=== PATIENT | female | born 1940 | race Caucasian/White ===

== ENCOUNTER 2016-08-06 16:03 | Emergency (ER) | payer MEDICARE, OTHER ==
[2016-08-06] MEDS ORDERED: BABY ASPIRIN 81 MG CHEW PO ONE (16:22)
[2016-08-06] MEDS ORDERED: BABY ASPIRIN 81 MG CHEW ONE (16:30)
--- NOTE | 2016-08-06 16:31 | ERPHSYRPT ---
- History of Present Illness Time Seen by Provider: 08/06/16 16:09 Source: patient, family Exam Limitations: clinical condition Patient Subjective Stated Complaint: PT STATES THAT SHE JUST "FEELS WOOZY" STATES THAT SHE. WOKE UP THIS AM AND FELT "WOOZY" STATES SHE WAS HAVING PROBLMES GRABBING THINGS WITH HER LEFT HAND AROUND 1300 TODAY. 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 AND STRONG PUPILS ROUND EQUAL AND REACTIVE. Time of Onset/Last Time Seen Normal: last pm Timing/Duration: today, hour(s) (8) Severity: mild Character of Deficits: new weakness Deficits: no difficulties Baseline/Normal Cognition: alert oriented x 3 Current Cognition: alert oriented x 3 Baseline Gait: walks w/o assistance Associated Symptoms: denies symptoms Allergies/Adverse Reactions: cefaclor [From Ceclor] Allergy (Intermediate, Verified 10/02/15 01:58) Rash Home Medications: Ascorbate Calcium [Vitamin C] 500 mg PO BID 10/01/15 [History] Calc/D3/Mag/Zn/Lacrosse Player/René/[place] [Calcium 600 mg Plus Vit D Tab] 1 each PO DAILY [History] Lisinopril 10 mg [Zestril 10 MG] 10 mg PO DAILY 10/01/15 [History] Vitamin E 400 unit PO DAILY 10/01/15 [History] Hx Tetanus, Diphtheria Vaccination/Date Given: No Hx Influenza Vaccination/Date Given: No Hx Pneumococcal Vaccination/Date Given: No Immunizations Up to Date: Yes - Review of Systems Constitutional: No Symptoms Eyes: No Symptoms Ears, Nose, & Throat: No Symptoms Respiratory: No Symptoms Cardiac: No Symptoms Abdominal/Gastrointestinal: No Symptoms Musculoskeletal: No Symptoms Skin: No Symptoms Neurological: Focal Weakness Psychological: No Symptoms Endocrine: No Symptoms Hematologic/Lymphatic: No Symptoms Immunological/Allergic: No Symptoms - Past Medical History Pertinent Past Medical History: Yes Neurological History: TIA ENT History: Cataracts Cardiac History: High Cholesterol, Hypertension Respiratory History: No Pertinent History Endocrine Medical History: No Pertinent History Musculoskeletal History: Arthritis GI Medical History: GERD History: No Pertinent History Psycho-Social History: No Pertinent History Female Reproductive Disorders: Breast Cancer Other Medical History: HYDROCEPHALIS, LEFT SIDE LUMPECTOMY WITH CHIP PLACEMNENT - Past Surgical History Past Surgical History: Yes Neuro Surgical History: Brain Shunt Cardiac: No Pertinent History Respiratory: No Pertinent History Gastrointestinal: No Pertinent History Genitourinary: No Pertinent History Female Surgical History: Hysterectomy Other Surgical History: BREAST CA, WITH LUMPECTOMY AND CHIP PLACEMENT,. BUNION SURGERY, CATARACT SURGERY WITH CORRECTIVE LENS IMPLANTS BILATERALLY - Social History Smoking Status: Never smoker Exposure to second hand smoke: Yes Drug Use: none Patient Lives Alone: No - Female History Hx Last Menstrual Period: N/A - Nursing Vital Signs Nursing Vital Signs: Initial Vital Signs Temperature 99.0 F Temperature Source Oral Pulse Rate 104 Respiratory Rate 18 Blood Pressure [Right Arm] 140/72 - [place] Coma Scale Best Eye Response (Jacqueline): (4) open spontaneously Best Verbal Response ([place]queline): (5) oriented Best Motor Response ([place]): (6) obeys commands [place] Total: 15 - Physical Exam General Appearance: no apparent distress Eye Exam: bilateral eye: normal inspection, PERRL, EOMI Ears, Nose, Throat Exam: normal ENT inspection, pharynx normal Neck Exam: normal inspection, non-tender, supple, full range of motion Respiratory: normal breath sounds, lungs clear Cardiovascular: regular rate/rhythm, normal heart sounds, normal peripheral pulses Gastrointestinal: soft, normal bowel sounds Back Exam: normal inspection, normal range of motion Extremity Exam: normal inspection, normal range of motion, pelvis stable Peripheral Pulses: dorsalis-pedis (R): 3+, dorsalis-pedis (L): 3+ Mental Status: alert, oriented x 3, cooperative laboratory tester Exam: normal hearing, normal speech, PERRL Coordination/Gait: normal finger to nose Motor/Sensory: no motor deficit, no sensory deficit, no pronator drift Skin Exam: normal color SpO2 Interpretation: borderline oxygenation SpO2: 92 Oxygen Delivery: Room Air - Course Nursing assessment & vital signs reviewed: Yes EKG Interpreted by Me: RATE (77), Sinus Rhythm, NORMAL AXIS, Other (No acute ischemia. No change since ECG of 10.01.2015) - CT Exams Head CT Interpretation: Discussed w/radiologist (Small subdural Right temperoparietal hematoma. 7 cm in AP dimension.) Ordered Tests: Active Orders 24 hr Category Date Time Status Compounding Pharmacy Technician STAT Care 08/06/16 16:22 Active Clean Catch Urine Specimen STAT Care 08/06/16 16:22 Active EKG-ER Only STAT Care 08/06/16 16:22 Active IV Insertion STAT Care 08/06/16 16:22 Active NPO (ED) STAT Care 08/06/16 16:22 Active Oxygen-ED Only NASAL CANNULA 2 lpm Care 08/06/16 16:22 Active CHEST 1 VIEW (PORTABLE) Stat Exams 08/06/16 16:22 Taken HEAD WITHOUT CONTRAST [CT] Stat Exams 08/06/16 16:23 Taken CBC W DIFF Stat Lab 08/06/16 16:22 Ordered CMP Stat Lab 08/06/16 16:22 Ordered PROTIME WITH INR Stat Lab 08/06/16 16:22 Ordered UA Stat Lab 08/06/16 16:22 Ordered Medication Summary Discontinued Medications Generic Name Dose Route Start Last Admin Trade Name Freq PRN Reason Stop Dose Admin Aspirin 81 mg 08/06/16 16:22 Baby Aspirin 81 Mg Chew PO 08/06/16 16:23 STAT ONE Aspirin Confirm 08/06/16 16:30 Baby Aspirin 81 Mg Chew Administered 08/06/16 16:31 Dose 81 mg .ROUTE .STK-MED ONE Labetalol HCl Confirm 08/06/16 16:50 Trandate 20 Mg/5 Ml Syringe Administered 08/06/16 16:51 Dose 20 mg IV .STK-MED ONE - Progress Progress: improved Discussed with Dr.: Other (Dr. Arango/Ne[facility]surgery notified at [facility] Accepts pt. to [facility].) Counseled pt/family regarding: lab results, diagnosis, need for follow-up, rad results - Departure Time of Disposition: 17:00 Departure Disposition: Transfer Clinical Impression: Subdural hematoma, Labile hypertension Condition: Serious Critical Care Time: Yes Critical Care Time(excluding separately billable procedures): 30-74 minutes
[2016-08-06] MEDS ORDERED: TRANDATE 20 MG/5 ML SYRINGE IV ONE (16:50)
[2016-08-06 16:55] VITALS: BP 140/72; PULSE 104
[2016-08-06] MEDS ORDERED: Keppra 500 MG/5 ML*** 1,000 MG in D5w 100ML Mini Bag 100 ML 100 ML IV ONE (17:02)
--- NOTE | 2016-08-06 17:02 | XRAY ---
Indication: Left-sided weakness. History of hydrocephalus. Multiple contiguous axial images obtained through the head without contrast. Comparison: October 01, 2015. New acute subdural hematoma seen along the right parietal convexity. It measures 6 mm in thickness and at least 7 cm in AP dimension. This is seen on a background of mixed chronic subdural hematoma. There is slight effacement of the adjacent brain parenchyma but no midline shifting. 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 Stable age-related global atrophy and mild periventricular degenerative microvascular ischemia. Bony calvarium intact. Visualized paranasal sinuses and mastoid air cells are pneumatized and clear. 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 Impression: 1. New right parietal subdural hematoma demonstrating mixed acute and chronic blood. No significant mass effect/midline shifting. 2. Stable normal aging brain including atrophy and degenerative micro-ischemia. 3. Stable communicating type hydrocephalus with ventricle shunt catheter in situ. 4. Stable left extraocular mass. Comment: Telephone report was given to ordering clinician, Dr. Ledezma at 1644 hrs on August 06, 2016.
[2016-08-06] MEDS ORDERED: Keppra 500 MG/5 ML ONE (17:03)
--- NOTE | 2016-08-06 17:03 | XRAY ---
Indication: Left-sided weakness. Comparison: February 08, 2008. Portable chest markedly underinflated today accentuating the cardiopulmonary structures and probably accounts for the bibasilar opacities. Underlying pneumonic infiltrate not completely excluded. No consolidation, large effusion, or pneumothorax. Stable right-sided ventricular shunt catheter traverses the chest. Bony thorax intact again with mild osteopenia. Stable left axillary noemi dissection. Impression: Nonacute underinflated chest. Underlying pneumonic infiltrate not completely excluded.
[2016-08-06] MEDS ORDERED: D5w 100ML Mini Bag 100 ML 100 ML IV ONE (17:04)
[2016-08-06 17:09] VITALS: O2SAT 92
[2016-08-06 17:18] LABS: BASOPHIL % 0.3 % (0.0-0.4); Eosinophil % 2.3 % (0.00-5.0); Granulocytes % 68.9 % (36.0-66.0); Mean Corpuscular Hemoglobin 29.2 pg (26-32); Mean Platelet Volume 11.1 fl (6-9.5); Monocytes % 6.5 % (0.0-12.0); Platelet Count 262 K/mm3 (150-450); Red Blood Count 4.31 M/mm3 (4.1-5.4); Red Cell Distribution Width 14.5 % (11.5-14.0); White Blood Count 7.7 K/mm3 (4.0-10.5)
[2016-08-06 17:22] LABS: INR 1.11 (0.8-3.0); PROTIME 12.4 SECONDS (9.95-12.35)
[2016-08-06 17:30] LABS: ALBUMIN 3.8 g/dL (3.4-5.0); ANION GAP 14.2 MEQ/L (5-15); BILIRUBIN,TOTAL 0.3 mg/dL (0.2-1.0); Carbon Dioxide 26.4 mEq/L (21-32); Total Protein 8.1 gm/dL (6.4-8.2)
== END 2016-08-06 17:31 | disposition short-term general hospital (02) ==
LOC: ED 16:03
DX: S06.5X0A Traumatic subdural hemorrhage without loss of consciousness, initial encounter (principal); R09.89 Other specified symptoms and signs involving the circulatory and respiratory systems; E78.00 Pure hypercholesterolemia, unspecified; I10 Essential (primary) hypertension; Z86.73 Personal history of transient ischemic attack (TIA), and cerebral infarction without residual deficits
CPT/HCPCS: 36000; 36415; 51702; 70450; 71010; 80053; 85025; 85610; 93005; 93041; 96365; 99285; J1953; A9270-GY

== ENCOUNTER 2017-05-20 22:49 | Inpatient (IN) | payer MEDICARE, OTHER ==
[2017-05-20] MEDS ORDERED: Sodium Chloride 0.9% 1000 ML 1,000 ML IV SCH (23:45)
--- NOTE | 2017-05-21 00:06 | ERPHSYRPT ---
- History of Present Illness Time Seen by Provider: 05/20/17 23:31 Source: patient Exam Limitations: no limitations Patient Subjective Stated Complaint: Flank Pain Triage Nursing Assessment: Pt presents via EMS with complaints of right flank pain. Pt had right nephrectomy 04/28/2017. Pt denies pain prior to today, states she recieved pain medication Oxycodone 5mg po prior to arrival with improvement in pain. Pt denies other complaints. A&O x4, no distress noted. Physician History: Pt underwent right laparoscopic nephrectomy one month ago for renal cancer. She denies recent chemotherapy or radiation, developed sudden, severe right flank pain this afternoon. She denies fever, chills, nausea, vomiting, but has chronic diarrhea, no bloody or black stool, no urinary complaints. She states, she has been currently taking PO Tamiflu for Influenza. Timing/Duration: today, improved Method of Injury: other (denies) Severity of Pain-Max: severe Severity of Pain-Current: mild Modifying Factors: Improves With: nothing Associated Symptoms: denies symptoms Previous symptoms: no prior history Allergies/Adverse Reactions: cefaclor [From Ceclor] Allergy (Intermediate, Verified 10/02/15 01:58) Rash Home Medications: Ascorbate Calcium [Vitamin C] 500 mg PO BID 10/01/15 [History] Calc/D3/Mag/Zn/Franck/René/[place] [Calcium 600 mg Plus Vit D Tab] 1 each PO DAILY 10/01/15 [History] Lisinopril 10 mg [Zestril 10 MG] 10 mg PO DAILY 10/01/15 [History] Vitamin E 400 unit PO DAILY 10/01/15 [History] Hx Tetanus, Diphtheria Vaccination/Date Given: Yes Hx Influenza Vaccination/Date Given: Yes Hx Pneumococcal Vaccination/Date Given: Yes Immunizations Up to Date: Yes - Review of Systems Constitutional: No Symptoms Abdominal/Gastrointestinal: Diarrhea Genitourinary Symptoms: Flank Pain All Other Systems: Reviewed and Negative - Past Medical History Pertinent Past Medical History: Yes Neurological History: TIA ENT History: Cataracts Cardiac History: High Cholesterol, Hypertension Respiratory History: No Pertinent History Endocrine Medical History: No Pertinent History Musculoskeletal History: Arthritis GI Medical History: GERD History: No Pertinent History Psycho-Social History: No Pertinent History Female Reproductive Disorders: Breast Cancer Other Medical History: HYDROCEPHALIS, LEFT SIDE LUMPECTOMY WITH CHIP PLACEMNENT - Past Surgical History Past Surgical History: Yes Neuro Surgical History: Brain Shunt Cardiac: No Pertinent History Respiratory: No Pertinent History Gastrointestinal: No Pertinent History Genitourinary: No Pertinent History Female Surgical History: Hysterectomy Other Surgical History: BREAST CA, WITH LUMPECTOMY AND CHIP PLACEMENT,. BUNION SURGERY, CATARACT SURGERY WITH CORRECTIVE LENS IMPLANTS BILATERALLY - Social History Smoking Status: Never smoker Exposure to second hand smoke: No Drug Use: none Patient Lives Alone: No - Nursing Vital Signs Nursing Vital Signs: Initial Vital Signs Temperature 98.0 F 05/20/17 22:54 Pulse Rate 84 05/20/17 22:54 Respiratory Rate 22 05/20/17 22:54 Blood Pressure 135/59 05/20/17 22:54 O2 Sat by Pulse Oximetry 94 L 05/20/17 22:54 Pain Scale Pain Intensity [Flank] 1 Pain Intensity 0 - Physical Exam General Appearance: no apparent distress Eye Exam: eyes nml inspection Ears, Nose, Throat Exam: normal ENT inspection Neck Exam: normal inspection, non-tender Respiratory Exam: normal breath sounds, lungs clear, No chest tenderness, No respiratory distress Cardiovascular Exam: regular rate/rhythm, normal heart sounds, normal peripheral pulses, No murmur Gastrointestinal Exam: soft, normal bowel sounds, tenderness (RUQ, mild), other (laparoscopy wounds, healed, no redness, or discharge.), No distention, No mass , No guarding, No rebound Back Exam: normal inspection, CVA tenderness (mod. right) Extremity Exam: normal inspection, No calf tenderness, No deformities, No angel' s sign, No inflammation Neurologic Exam: alert, oriented x 3 Skin Exam: normal color, warm, dry, No rash Lymphatic Exam: No adenopathy SpO2 Interpretation: normal SpO2: 94 Oxygen Delivery: Room Air - Radiology Exams Chest X-ray Interpretation: Interpreted by me, Other (Cardiomegaly, RLL atelectasis) - CT Exams Abdomen CT Interpretation: Other (small amount of fluid in the right nephrectomy bed, postop. hematoma vs. seroma, small area of consolidation at the right lung base. ) Ordered Tests: Active Orders 24 hr Category Date Time Status Up With Assistance ROUTINE Activity 05/21/17 02:37 Ordered Admission/Status Order ROUTINE Care 05/21/17 02:37 Ordered Code Status Order ROUTINE Care 05/21/17 02:37 Ordered IV Care Q6H Care 05/21/17 02:37 Ordered IV Insertion STAT Care 05/20/17 23:39 Active 1800 Calorie ADA Diet 05/21/17 Breakfast Ordered ABDOMEN AND PELVIS W/0 CONTRAS [CT] Stat Exams 05/21/17 00:37 Taken CHEST 1 VIEW (PORTABLE) Stat Exams 05/20/17 23:40 Taken BLOOD CULTURE Stat Lab 05/21/17 00:05 Received BMP AM.LAB Lab 05/21/17 04:00 Ordered CBC W DIFF AM.LAB Lab 05/21/17 04:00 Ordered CBC W DIFF Stat Lab 05/20/17 23:55 Completed CMP Stat Lab 05/20/17 23:55 Completed D-DIMER QUANTITATION Stat Lab 05/20/17 23:55 Completed LIPASE Stat Lab 05/20/17 23:55 Completed Lactic Acid Stat Lab 05/20/17 23:39 Completed Lactic Acid Stat Lab 05/21/17 01:52 Ordered Manual Differential NC Stat Lab 05/20/17 23:55 Completed UA W/ MICROSCOPIC Stat Lab 05/20/17 01:45 Completed Oxygen NASAL CANNULA 2 lpm RT 05/21/17 02:37 Ordered Medication Summary Generic Name Dose Route Start Last Admin Trade Name Freq PRN Reason Stop Dose Admin Sodium Chloride 1,000 mls @ 100 mls/hr 05/20/17 23:45 05/21/17 02:08 Sodium Chloride 0.9% 1000 Ml IV 06/19/17 23:44 100 mls/hr .Q10H LEILA Administration Levofloxacin/Dextrose 250 mg in 50 mls @ 50 mls/hr 05/21/17 10:00 05/21/17 02 :08 Levaquin 250mg/50ml D5w IV 06/20/17 09:59 50 mls/hr Q24H10 LEILA Administration Vancomycin HCl 1 gm in 250 mls @ 167 mls/hr 05/21/17 02:06 Vancomycin 1gm/ Ns 250ml IV 05/21/17 03:35 STAT ONE Lab/Rad Data: Laboratory Result Diagrams 05/20/17 23:55 05/20/17 23:55 Laboratory Results 05/21/17 05/20/17 05/20/17 Range/Units 00:54 23:55 23:55 WBC (4.0-10.5) K/mm3 RBC (4.1-5.4) M/mm3 Hgb (12.0-16.0) gm/dl Hct (35-47) % MCV (78-100) fl MCH (26-32) pg MCHC (32-36) g/dl RDW (11.5-14.0) % Plt Count (150-450) K/mm3 MPV (6-9.5) fl Segmented Neutrophils (36.0-66.0) % Lymphocytes (Manual) (24-44) % Monocytes (Manual) (0.0-12.0) % Differential Comment Platelet Estimate (NORMAL) D-Dimer 93729.77 H* (0-500) ng/mL Sodium (136-145) mEq/L Potassium (3.5-5.1) mEq/L Chloride (98-107) mEq/L Carbon Dioxide (21-32) mEq/L Anion Gap (5-15) MEQ/L BUN (9-20) mg/dL Creatinine (0.55-1.30) mg/dl Estimated GFR ML/MIN Glucose (70-110) MG/DL Lactic Acid 1.7 (0.4-2.0) Calcium (8.5-10.1) mg/dL Total Bilirubin (0.2-1.0) mg/dL AST (15-37) U/L ALT (12-78) U/L Alkaline Phosphatase (46-116) U/L Serum Total Protein (6.4-8.2) gm/dL Albumin (3.4-5.0) g/dL Lipase 240 (73-393) U/L Ur Collection Type Urine Color (YELLOW) Urine Appearance (CLEAR) Urine pH (5-6) Ur Specific Berry (1.005-1.025) Urine Protein (Negative) Urine Ketones (NEGATIVE) Urine Blood (0-5) Lionel/ul Urine Nitrite (NEGATIVE) Urine Bilirubin (NEGATIVE) Urine Urobilinogen (0-1) mg/dL Ur Leukocyte Esterase (NEGATIVE) Urine Microscopic RBC (0-2) /HPF Ur Epithelial Cells (FEW) /HPF Urine Bacteria (NEGATIVE) /HPF Hyaline Casts (0-2) /LPF Granular Casts (NEGATIVE) /LPF Urine Culture Reflexed (NO) Urine Glucose (NEGATIVE) mg/dL Specimen Received 05/20/17 05/20/17 05/20/17 Range/Units 23:55 23:55 01:45 WBC 14.3 H (4.0-10.5) K/mm3 RBC 3.36 L (4.1-5.4) M/mm3 Hgb 9.9 L (12.0-16.0) gm/dl Hct 30.6 L (35-47) % MCV 91.1 (78-100) fl MCH 29.4 (26-32) pg MCHC 32.4 (32-36) g/dl RDW 15.1 H (11.5-14.0) % Plt Count 244 (150-450) K/mm3 MPV 10.6 H (6-9.5) fl Segmented Neutrophils 81 H (36.0-66.0) % Lymphocytes (Manual) 14 L (24-44) % Monocytes (Manual) 5 (0.0-12.0) % Differential Comment NORMAL Platelet Estimate NORMAL (NORMAL) D-Dimer (0-500) ng/mL Sodium 134 L (136-145) mEq/L Potassium 4.0 (3.5-5.1) mEq/L Chloride 105 (98-107) mEq/L Carbon Dioxide 18.0 L (21-32) mEq/L Anion Gap 15.0 (5-15) MEQ/L BUN 40 H (9-20) mg/dL Creatinine 1.59 H (0.55-1.30) mg/dl Estimated GFR 33 ML/MIN Glucose 135 H (70-110) MG/DL Lactic Acid (0.4-2.0) Calcium 8.1 L (8.5-10.1) mg/dL Total Bilirubin 0.20 (0.2-1.0) mg/dL AST 30 (15-37) U/L ALT 42 (12-78) U/L Alkaline Phosphatase 58 (46-116) U/L Serum Total Protein 7.7 (6.4-8.2) gm/dL Albumin 2.6 L (3.4-5.0) g/dL Lipase (73-393) U/L Ur Collection Type CLEAN CATCH Urine Color YELLOW (YELLOW) Urine Appearance CLEAR (CLEAR) Urine pH 5.0 (5-6) Ur Specific Berry 1.010 (1.005-1.025) Urine Protein TRACE (Negative) Urine Ketones NEGATIVE (NEGATIVE) Urine Blood 250 (0-5) Lionel/ul Urine Nitrite NEGATIVE (NEGATIVE) Urine Bilirubin NEGATIVE (NEGATIVE) Urine Urobilinogen NORMAL (0-1) mg/dL Ur Leukocyte Esterase NEGATIVE (NEGATIVE) Urine Microscopic RBC 5-10 (0-2) /HPF Ur Epithelial Cells FEW (FEW) /HPF Urine Bacteria RARE (NEGATIVE) /HPF Hyaline Casts 0-2 (0-2) /LPF Granular Casts 0-2 (NEGATIVE) /LPF Urine Culture Reflexed NO (NO) Urine Glucose NEGATIVE (NEGATIVE) mg/dL Specimen Received 05/21/17 0145 - Progress Progress: improved Progress Note: 05/21/17 02:43 Pt has been stable, normotensive, not hypoxaemic, O2 sat: 94 % on RA, afebrile, denies severe pain or SOB. I called Dr Healy Urologist at , ( Dr Peck's pt surgeon's partner media reconciliation specialist) discussed the results and patients current condition, he agreed to keep her here, admit to her PCP , start iv hydration and antibiotics. I called Dr Min, also informed her about our results and patients condition, she agreed to admit her to regular Telemetry bed. Pt and her son were informed and agreed. Discussed with .: Mechelle Will see patient in: hospital (full admit) Counseled pt/family regarding: lab results, diagnosis, rad results - Departure Time of Disposition: 02:46 Departure Disposition: In-patient Admission Clinical Impression: Pneumonia Qualifiers: Pneumonia type: due to unspecified organism Laterality: right Lung location: lower lobe of lung Qualified Code(s): J18.1 - Lobar pneumonia, unspecified organism Condition: Stable Critical Care Time: No Referrals: MATILDA MOSER [Primary Care Provider] -
[2017-05-21 00:07] LABS: Granulocyte Absolute (ANC) 11.85 (1.4-6.9); Hematocrit 30.6 % (35-47); Hemoglobin 9.9 gm/dl (12.0-16.0); Mean Cell Volume 91.1 fl (78-100); Mean Corpuscular Hgb Concent. 32.4 g/dl (32-36); Mean Platelet Volume 10.6 fl (6-9.5); Platelet Count 244 K/mm3 (150-450); Red Blood Count 3.36 M/mm3 (4.1-5.4); Red Cell Distribution Width 15.1 % (11.5-14.0); White Blood Count 14.3 K/mm3 (4.0-10.5)
[2017-05-21 00:28] LABS: Mean Corpuscular Hemoglobin 29.4 pg (26-32)
[2017-05-21 00:33] LABS: ALBUMIN 2.6 g/dL (3.4-5.0); BILIRUBIN,TOTAL 0.2 mg/dL (0.2-1.0); Calcium 8.1 mg/dL (8.5-10.1); Creatinine 1 1.59 mg/dl (0.55-1.30); Total Protein 7.7 gm/dL (6.4-8.2)
[2017-05-21 01:48] LABS: Lymphocytes 14 % (24-44); Monocyte 5 % (0.0-12.0); Neutrophils 81 % (36.0-66.0); Platelet Estimate NORMAL (NORMAL); Total Cells Counted 100
[2017-05-21 01:58] LABS: Appearance CLEAR (CLEAR)
[2017-05-21 01:59] LABS: Bilirubin NEGATIVE (NEGATIVE); Blood 250 Ery/ul (0-5); Glucose NEGATIVE (NEGATIVE); Ketones NEGATIVE (NEGATIVE); Leukocyte Esterase NEGATIVE (NEGATIVE); Nitrite NEGATIVE (NEGATIVE); Protein,Urine Dip TRACE (Negative); Urobilinogen NORMAL mg/dL (0-1)
[2017-05-21] MEDS ORDERED: Vancomycin 1GM/ Ns 250ML*** 1 GM/250 ML IVPB IV ONE (02:06)
[2017-05-21 02:18] LABS: Bacteria RARE /HPF (NEGATIVE); Epithelial Cells FEW /HPF (FEW); GRANULAR CASTS 0-2 /LPF (NEGATIVE); Hyaline Casts 0-2 /LPF (0-2)
[2017-05-21] MEDS ORDERED: Zofran 4 MG/2 ML VIAL IV PRN (02:37)
[2017-05-21] MEDS ORDERED: NovoLOG Insulin SQ PRN ×2 (02:37→08:36)
[2017-05-21] MEDS ORDERED: DUONEB 0.5-3 MG/3 ml Neb IH PRN (02:37)
[2017-05-21] MEDS ORDERED: TYLENOL 325 MG PO PRN (02:37)
[2017-05-21] MEDS ORDERED: Sodium Chloride 0.9% 1000 ML 1,000 ML IV SCH (02:45)
[2017-05-21] MEDS ORDERED: Vancomycin 1GM/ Ns 250ML*** 250 ML IV ONE (02:57)
[2017-05-21 05:47] LABS: Granulocyte Absolute (ANC) 10.34 (1.4-6.9); Hematocrit 30.1 % (35-47); Hemoglobin 9.6 gm/dl (12.0-16.0); Mean Corpuscular Hgb Concent. 31.9 g/dl (32-36); Mean Platelet Volume 10.4 fl (6-9.5); Platelet Count 243 K/mm3 (150-450); Red Blood Count 3.27 M/mm3 (4.1-5.4); Red Cell Distribution Width 15.2 % (11.5-14.0); White Blood Count 13.7 K/mm3 (4.0-10.5)
[2017-05-21 06:18] LABS: Mean Corpuscular Hemoglobin 29.3 pg (26-32)
[2017-05-21 08:52] LABS: ANION GAP 15.6 MEQ/L (5-15); Carbon Dioxide 18.4 mEq/L (21-32); Creatinine 1 1.32 mg/dl (0.55-1.30); Potassium 4.1 mEq/L (3.5-5.1)
[2017-05-21] MEDS ORDERED: PROVENTIL 2.5 MG/3 ML NEB IH PRN (09:10)
[2017-05-21] MEDS ORDERED: Senokot-S Tablet PO PRN (09:10)
[2017-05-21] MEDS ORDERED: Oxy-IR 5 MG PO PRN (09:10)
--- NOTE | 2017-05-21 09:35 | XRAY ---
Indication: Right flank pain. Status post right nephrectomy April 28, 2017. Multiple contiguous axial images obtained through the abdomen and pelvis without contrast as ordered. Comparison: April 23, 2017. Lung bases demonstrate worsening bibasilar atelectasis/scarring. Stable right middle lobe calcified granuloma. No suspicious pulmonary mass or effusion. Heart is not enlarged. There has been interval right total nephrectomy with now tiny free fluid in the renal fossa. No walled off fluid collection or free air. Again there is shunt catheter with the tip in the right renal fossa. Stable fatty liver, hepatic cyst, calcified splenic granulomas, large gallstones, and previous hysterectomy. Noncontrasted stomach and bowel loops appear nonobstructed. Normal appendix. Remaining pancreas, adrenal glands, left kidney, left ureter, and bladder appear unremarkable for noncontrast exam. There remains mild aortoiliac calcifications without AAA. Impression: 1. Status post right total nephrectomy. Small fluid collection and shunt catheter in the right renal fossa. 2. Stable fatty liver, hepatic cyst, large gallstones, and evidence for old granulomatous disease. Comment: Preliminary interpretation was made by C. No critical discrepancy. CTDI 23.68
--- NOTE | 2017-05-21 09:37 | XRAY ---
Indication: Flank pain. Status post nephrectomy. Comparison: August 06, 2016. Portable chest better inflated today with chronic right hemidiaphragm elevation and adjacent atelectasis/scarring. Remaining lungs clear. Heart is not enlarged for AP portable technique. Bony thorax intact again with minimal degenerative changes, left axillary noemi dissection, and right shunt catheter. Impression: Nonacute chest with chronic features.
[2017-05-21] MEDS ORDERED: CALC PO SCH (10:00)
[2017-05-21] MEDS ORDERED: COPP PO SCH (10:00)
[2017-05-21] MEDS ORDERED: MANG PO SCH (10:00)
[2017-05-21] MEDS ORDERED: NON-FORMULARY ITEM (Cholecalciferol (Vitamin D3) [D3-2000] 2,000 UNIT) PO SCH (10:00)
[2017-05-21] MEDS ORDERED: ENOXAPARIN SODIUM SQ SCH ×3 (10:00→11:00)
[2017-05-21] MEDS ORDERED: D3 PO SCH (10:00)
[2017-05-21] MEDS ORDERED: Levaquin 250MG/50ML D5W 250 MG/50 ML BAG IV SCH (10:00)
[2017-05-21] MEDS ORDERED: ASCORBATE CALCIUM 1000 MG PO SCH (10:00)
[2017-05-21] MEDS ORDERED: BORON PO SCH (10:00)
[2017-05-21] MEDS ORDERED: [UNRECOGNIZED DRUG - OTHER] PO SCH (10:00)
[2017-05-21] MEDS ORDERED: MAG PO SCH (10:00)
--- NOTE | 2017-05-21 10:04 | XRAY ---
Indication: Right leg swelling. Elevated d-dimer. Status post nephrectomy. Two-dimensional sonogram and color Doppler imaging of the major venous lordosis of the left and right leg was performed. Comparison: None Examination of the left leg demonstrates occluding thrombus in the peroneal vein. No thrombus seen in the remaining common femoral, deep femoral, superficial femoral, popliteal, tibioperoneal trunk, posterior tibial, and greater saphenous veins. Examination of the right leg negative for thrombus including greater saphenous vein. Veins demonstrate normal compressibility. Venous waveforms are normal with and without augmentation. Impression: 1. Left leg peroneal vein occluding DVT. 2. Right leg negative for DVT. Comment: Preliminary report was given to patient's nurseSindhu following the exam.
[2017-05-21] MEDS: VITAMIN D PO SCH (10:29)
[2017-05-21] MEDS ORDERED: PHARMACY DOSING REQUEST MC ONE (10:36)
[2017-05-21] MEDS: Calcium 500MG W/Vit D Tablet PO SCH (10:38)
[2017-05-21] MEDS: Vitamin C 500 MG PO SCH (10:38)
[2017-05-21] MEDS: Pepcid 20 MG PO SCH (10:38)
[2017-05-21] MEDS: DELTASONE 20 MG PO SCH (10:40)
[2017-05-21] MEDS: Dextrose 5% -0.45 NaCl 1000 ML 1,000 ML IV SCH (12:21)
--- NOTE | 2017-05-21 13:05 | XRAY ---
Indication: Short of breath and right-sided chest pain. Elevated d-dimer. Status post right nephrectomy for renal carcinoma. Patient received 5.8 mCi technetium 99 MAA for the perfusion portion of the exam. Patient inhaled 38 mCi of aerosolized technetium 99 DTPA for the ventilation portion of the exam. Multiplanar images obtained. Comparison: None Perfusion images demonstrates small subsegmental perfusion defect in the right middle lobe. No other perfusion defects. Incidental elevated right hemidiaphragm. Ventilation images demonstrates homogeneous radiopharmaceutical activity bilaterally without focal defect. Incidental small amount of ingested radiopharmaceutical in the GI system. Impression: Small focus of right middle lobe ventilation perfusion mismatch. No corresponding radiographic abnormality. PIOPED criteria for pulmonary embolus is intermediate probability.
--- NOTE | 2017-05-21 14:02 | HP ---
HISTORY OF PRESENT ILLNESS: This is a 77 year-old patient who came from [facility] to the Emergency Department. She recently had a right radical nephrectomy done for renal mass on 04/28/2017. She has been at [facility] for rehabilitation. She was diagnosed with influenza A on 05/10/0505/15/2017. I saw her at [facility] yesterday on 05/20/2017. She was feeling well then. She reports she developed a sudden sharp right flank pain for which they gave her Percocet for. She states this helped some but she was brought to the emergency room for further evaluation and treatment. The emergency room physician's note said that she had a CT scan that showed a small hematoma and a small right lower lobe infiltrate. I called the patient's on-call urologist and they wanted her to stay here for treatment of the pneumonia. In the emergency room, she also had an elevated D-dimer. This morning she had been complaining of some swelling of her right lower leg and she states that has been there ever since she was diagnosed with a melanoma. Since she had the elevated D-dimer a VQ scan was ordered and Doppler's of her lower extremities as well. The patient reports the pain that she had in her right flank has not returned. She reports her breathing has been doing okay. She denies any chest pain. REVIEW OF SYSTEMS: She has had a cough. No nausea or vomiting. No chest pain. She had some lower extremity edema in her right lower leg. No abdominal pain. Her surgical wounds have been healing with just some mild drainage of her midline one. No fevers. PAST MEDICAL HISTORY: Breast cancer in 2002. 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 She reports they have not completely removed this yet as they told her they needed to take the renal mass out first, this was found on CT scan December 2016 and removed 04/28/2017 with a right radical nephrectomy. Hyperlipidemia, gastroesophageal reflux, history of [employer] shunt. CT scan ordered by her neurologist noted a right subdural hematoma in the remote past. History of diarrhea. PAST SURGICAL HISTORY: Hysterectomy. Left bunion removed. Shunt at [facility] over ten years ago. Cataracts x2. The last colonoscopy 07/17/2013. Lumpectomy left breast 2002. MEDICATIONS: Carvedilol 3.125 mg p.o. b.i.d., vitamin D 2,000 units daily, prednisone 20 mg daily. She is to finish this today and tomorrow, docusate, Nucynta 1 tablet every 12 hours as needed, Metformin 1,000 mg p.o. q.h.s., oxycodone 5 mg 1 tablet every four hours as needed, famotidine 10 mg p.o. daily, Pravastatin 40 mg p.o. q.h.s., Albuterol 2.5 mg nebulizer every four hours as needed, Tylenol 650 mg p.o. every four hours as needed, vitamin C 1,000 mg p.o. daily, multivitamin 1 tablet p.o. daily. ALLERGIES: CECLOR, AMOXICILLIN. SOCIAL HISTORY: She is a . No tobacco or alcohol use. She is currently in rehab at [facility]. Her family is involved in her care. PHYSICAL EXAMINATION: VITAL SIGNS: Temperature current 98.8F, temperature max 98.8F, heart rate 70 to 78, respiratory rate 18 to 22, blood pressure 110 to 146 over 59 to 82, weight 99.1 kg. Oxygen saturation 92 to 97% on room air to 2 liters nasal cannula. GENERAL: The patient is a pleasant talkative lady sitting up in bed in no acute distress eating her breakfast. CVS: She is a regular rate and rhythm. No murmurs, gallops or rubs are appreciated. CHEST: Clear to auscultation bilaterally. No crackles or wheezes. ABDOMEN: Soft, nontender, nondistended. She has a scar that is healing just below her umbilicus in her lower abdomen and a few smaller scars where she had trochanters placed for the surgery. She has some mild tenderness over her right lower flank. EXTREMITIES: Mild swelling of her right lower leg. No clubbing or cyanosis. LABORATORY DATA AND TESTS: Her D-dimer in the emergency room was 17,780. White blood cell count 13,700 this morning. Creatinine 1.32. Lactic acid was normal. UA revealed 5-10 red blood cells. Blood cultures in lab. CT of her abdomen and pelvis status post right total nephrectomy, small fluid collection, shunt catheter right renal fossa, stable fatty liver hepatic cystic, large gallstone with evidence of old granulomatous disease. On our radiologist report he does not mention pneumonia in the right lower lobe. It said worsening bibasilar atelectasis/scarring. Concern for pneumonia was read on the [facility] interpretation. Chest x-ray nonacute chest with chronic features. VQ scan small focus of right middle lobe ventilation perfusion with miss-match, it says intermediate probability for pulmonary embolism. Venous Doppler with left leg peroneal vein occluding deep venous thrombosis. ASSESSMENT AND PLAN: 1) PULMONARY EMBOLISM: She was started on Lovenox 1 mg/kg when the results of the deep venous thrombosis Doppler were back. I plan to start her on Coumadin. I discussed with her urologist full anticoagulation. He said that would be fine and just monitor her hemoglobin. 2) PNEUMONIA: This was read on the first CT scan of her abdomen and pelvis from [facility] radiologist. We will go ahead and continue with levofloxacin as her white blood cell count was also slightly elevated. 3) LEFT LOWER EXTREMITY DEEP VENOUS THROMBOSIS: Will continue with Lovenox and Coumadin as described above. 4) HISTORY OF RECENT RIGHT RADICAL NEPHRECTOMY FOR RENAL MASS: She has follow up already scheduled with her urologist and oncologist. 5) HYPERLIPIDEMIA: Will continue with her home medications. 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 7) RECENT INFLUENZA A. She finished five days of Tamiflu already and will discuss with infection control if she still needs to be in isolation.
[2017-05-21] MEDS: Coumadin 5 MG PO SCH (17:34)
[2017-05-21] MEDS: ZOCOR 20MG PO SCH (21:29)
[2017-05-21] MEDS ORDERED: NON-FORMULARY ITEM (Pravastatin Sodium [Pravachol] 40 MG) PO SCH (22:00)
[2017-05-22] MEDS: Levaquin 250MG/50ML D5W 250 MG/50 ML BAG IV SCH ×2 (00:02→21:40)
[2017-05-22] MEDS: Dextrose 5% -0.45 NaCl 1000 ML 1,000 ML IV SCH (03:26)
[2017-05-22 06:32] LABS: Hematocrit 29.3 % (35-47); Hemoglobin 9.3 gm/dl (12.0-16.0); Mean Cell Volume 92.4 fl (78-100); Mean Corpuscular Hemoglobin 29.3 pg (26-32); Mean Corpuscular Hgb Concent. 31.7 g/dl (32-36); Mean Platelet Volume 10.5 fl (6-9.5); Platelet Count 249 K/mm3 (150-450); Red Blood Count 3.17 M/mm3 (4.1-5.4); Red Cell Distribution Width 14.9 % (11.5-14.0); White Blood Count 11.3 K/mm3 (4.0-10.5)
[2017-05-22 06:33] LABS: INR 1.22 (0.8-3.0)
[2017-05-22 06:37] LABS: ANION GAP 13.6 MEQ/L (5-15); Carbon Dioxide 19.3 mEq/L (21-32); Creatinine 1 1.1 mg/dl (0.55-1.30); Potassium 3.9 mEq/L (3.5-5.1)
[2017-05-22 07:44] LABS: Eosinophil 2 % (0.00-3.0); Lymphocytes 11 % (24-44); Monocyte 6 % (0.0-12.0); Neutrophils 81 % (36.0-66.0); Platelet Estimate NORMAL (NORMAL); Total Cells Counted 100
[2017-05-22 07:45] LABS: ANISOCYTOSIS 1+
--- NOTE | 2017-05-22 10:09 | PCM.NOTE ---
Date and Time: 05/22/17 1003 Subjective Assessment: her pain is improved now she has some tenderness in the right lower leg but otherwise doing well breathing well feels better after sleeping she states she is eating and drinking well now. Objective Exam General Appearance: no apparent distress, alert, obese Neurologic Exam: alert, oriented x 3, cooperative, normal mood/affect, nml cerebellar function, sensation nml, No motor deficits Skin Exam: normal color, warm, dry Eye Exam: PERRL, EOMI, eyes nml inspection Ears, Nose, Throat Exam: normal ENT inspection, pharynx normal, moist mucous membranes Neck Exam: normal inspection, non-tender, supple, full range of motion Respiratory Exam: normal breath sounds, lungs clear, No respiratory distress Cardiovascular Exam: regular rate/rhythm, normal heart sounds Gastrointestinal/Abdomen Exam: soft, No tenderness, No mass Extremity Exam: normal inspection, normal range of motion, other (right leg anterior scar at site of previous melanoma removal mild tenderness no swelling.) Back Exam: normal inspection, normal range of motion, No CVA tenderness, No vertebral tenderness Pelvic Exam: deferred Rectal Exam: deferred OBJECTIVE DATA Vital Signs: Vital Signs - 24 hr Temp Pulse Resp BP Pulse Ox 05/22/17 07:21 97.8 F 69 18 154/67 95 05/22/17 07:00 18 05/22/17 03:54 97.9 F 70 20 154/64 94 L 05/22/17 03:40 97.9 F 70 20 154/64 94 L 05/22/17 03:30 20 05/22/17 00:00 97.8 F 72 18 152/67 94 L 05/21/17 22:00 19 05/21/17 21:37 82 19 95 05/21/17 19:48 98.9 F 82 19 146/63 95 05/21/17 17:54 26 H 05/21/17 17:49 88 20 94 L 05/21/17 16:00 99.2 F 86 24 133/61 92 L 05/21/17 13:33 20 05/21/17 11:42 98.8 F 78 20 125/60 94 L Oxygen-Last 24 hours O2 Percentage 2 Liters = 28% O2 Percentage 2 Liters = 28% O2 Percentage 2 Liters = 28% O2 Percentage 2 Liters = 28% O2 Percentage 3 Liters = 32% O2 Percentage 3 Liters = 32% O2 Percentage 2 Liters = 28% Pain Assessment - Last Documented Pain Scale Used 0-10 Pain Scale Intake and Output: Intake & Output 05/19/17 05/20/17 05/21/17 05/22/17 11:59 11:59 11:59 11:59 Intake Total 480 3373 Output Total 150 750 Balance 330 2623 Weight 99.1 kg 99.1 kg Lab Results: Accuchecks Date 05/22/17 Date 05/21/17 Date 05/21/17 Date 05/21/17 Time 07:30 Time 21:30 Time 16:26 Time 11:30 Accucheck Value: 103 Accucheck Value: 167 Accucheck Value: 160 Accucheck Value: 114 Lab Results-Last 24 Hours 05/21/17 05/22/17 05/22/17 Range/Units 14:22 06:00 06:00 WBC 11.3 H (4.0-10.5) K/mm3 RBC 3.17 L (4.1-5.4) M/mm3 Hgb 9.3 L (12.0-16.0) gm/dl Hct 29.3 L (35-47) % MCV 92.4 (78-100) fl MCH 29.3 (26-32) pg MCHC 31.7 L (32-36) g/dl RDW 14.9 H (11.5-14.0) % Plt Count 249 (150-450) K/mm3 MPV 10.5 H (6-9.5) fl Segmented Neutrophils 81 H (36.0-66.0) % Lymphocytes (Manual) 11 L (24-44) % Monocytes (Manual) 6 (0.0-12.0) % Eosinophils (Manual) 2 (0.00-3.0) % Differential Comment ABNORMAL Platelet Estimate NORMAL (NORMAL) Anisocytosis 1+ INR (0.8-3.0) Sodium 138 (136-145) mEq/L Potassium 3.9 (3.5-5.1) mEq/L Chloride 109 H (98-107) mEq/L Carbon Dioxide 19.3 L (21-32) mEq/L Anion Gap 13.6 (5-15) MEQ/L BUN 25 H (9-20) mg/dL Creatinine 1.10 (0.55-1.30) mg/dl Estimated GFR 51 ML/MIN Glucose 108 (70-110) MG/DL Hemoglobin A1c 6.4 H (4.5-6.2) Calcium 8.0 L (8.5-10.1) mg/dL 05/22/17 Range/Units 06:00 WBC (4.0-10.5) K/mm3 RBC (4.1-5.4) M/mm3 Hgb (12.0-16.0) gm/dl Hct (35-47) % MCV (78-100) fl MCH (26-32) pg MCHC (32-36) g/dl RDW (11.5-14.0) % Plt Count (150-450) K/mm3 MPV (6-9.5) fl Segmented Neutrophils (36.0-66.0) % Lymphocytes (Manual) (24-44) % Monocytes (Manual) (0.0-12.0) % Eosinophils (Manual) (0.00-3.0) % Differential Comment Platelet Estimate (NORMAL) Anisocytosis INR 1.22 (0.8-3.0) Sodium (136-145) mEq/L Potassium (3.5-5.1) mEq/L Chloride (98-107) mEq/L Carbon Dioxide (21-32) mEq/L Anion Gap (5-15) MEQ/L BUN (9-20) mg/dL Creatinine (0.55-1.30) mg/dl Estimated GFR ML/MIN Glucose (70-110) MG/DL Hemoglobin A1c (4.5-6.2) Calcium (8.5-10.1) mg/dL Radiology Exams: Radiology Procedures Category Date Time Status PULMONARY PERF VENTILATION [NUCMED] Routine Exams 05/21/17 08:38 Completed ULTRASOUND BILATERAL LOWER EXTREMITY [VENOUS BILATERAL Exams 05/21/17 09:35 Completed EXTREMITY] [US] Routine Multi-Disciplinary Progress Notes: Multi-Disciplinary Progress Notes 05/21/17 10:39 Pharmacy Note by Kvng Cisneros Lovenox dosed at 1mg/kg SQ daily for renal function. Estimated crcl is 28ml/ min. Initialized on 05/21/17 10:39 - END OF NOTE Assessment/Plan (1) Pulmonary embolism Current Visit: Yes Status: Acute Qualifiers: Chronicity: acute Acute cor pulmonale presence: without acute cor pulmonale Assessment & Plan: suspected on right with intermediate criteria on V/Q scan and the left lower extremity DVT on ultrasound on therapeutic lovenox with warfarin bridge monitor INR wean O2 as tolerated currently on levoquin for concern for pneumonia recently treated for Influenza A diagnosed 8 days ago and completed tamiflu coarse recent post op nephrectomy pain controlled suspected cancer unknown pathology right lower leg s/p melanoma excision Code(s): I26.99 - OTHER PULMONARY EMBOLISM WITHOUT ACUTE COR PULMONALE (2) DVT (deep venous thrombosis) Current Visit: Yes Status: Acute Qualifiers: DVT location: lower extremity Chronicity: acute Laterality: left Code(s): I82.409 - ACUTE EMBOLISM AND THOMBOS UNSP DEEP VN UNSP LOWER EXTREMITY (3) Pneumonia Current Visit: Yes Status: Acute Qualifiers: Pneumonia type: due to unspecified organism Laterality: right Lung location: lower lobe of lung Qualified Code(s): J18.1 - Lobar pneumonia, unspecified organism Code(s): J18.9 - PNEUMONIA, UNSPECIFIED ORGANISM (4) Acute kidney injury Current Visit: Yes Status: Acute Code(s): N17.9 - ACUTE KIDNEY FAILURE, UNSPECIFIED (5) History of melanoma Current Visit: Yes Status: Acute Code(s): Z85.820 - PERSONAL HISTORY OF MALIGNANT MELANOMA OF SKIN (6) S/p nephrectomy Current Visit: Yes Status: Acute Code(s): Z90.5 - ACQUIRED ABSENCE OF KIDNEY (7) Influenza A Current Visit: Yes Status: Resolved Code(s): J10.1 - FLU DUE TO OTH IDENT INFLUENZA VIRUS W OTH RESP MANIFEST
[2017-05-22] MEDS: Calcium 500MG W/Vit D Tablet PO SCH (10:39)
[2017-05-22] MEDS: Vitamin C 500 MG PO SCH (10:39)
[2017-05-22] MEDS: VITAMIN D PO SCH (10:39)
[2017-05-22] MEDS: DELTASONE 20 MG PO SCH (10:39)
[2017-05-22] MEDS: Pepcid 20 MG PO SCH (10:39)
[2017-05-22] MEDS: Coumadin 5 MG PO SCH (17:36)
[2017-05-22] MEDS: ENOXAPARIN SODIUM SQ SCH (21:40)
[2017-05-22] MEDS: ZOCOR 20MG PO SCH (21:40)
[2017-05-23 05:40] LABS: Hematocrit 30.8 % (35-47); Hemoglobin 9.7 gm/dl (12.0-16.0); Mean Cell Volume 92.5 fl (78-100); Mean Corpuscular Hemoglobin 29.1 pg (26-32); Mean Corpuscular Hgb Concent. 31.5 g/dl (32-36); Mean Platelet Volume 10.6 fl (6-9.5); Platelet Count 283 K/mm3 (150-450); Red Blood Count 3.33 M/mm3 (4.1-5.4); White Blood Count 9.8 K/mm3 (4.0-10.5)
[2017-05-23 05:51] LABS: INR 1.39 (0.8-3.0)
[2017-05-23 06:00] LABS: ANION GAP 12.9 MEQ/L (5-15); Calcium 8.7 mg/dL (8.5-10.1); Carbon Dioxide 23.4 mEq/L (21-32); Creatinine 1 1.07 mg/dl (0.55-1.30); Potassium 3.8 mEq/L (3.5-5.1)
[2017-05-23] MEDS: Calcium 500MG W/Vit D Tablet PO SCH (10:17)
[2017-05-23] MEDS: Pepcid 20 MG PO SCH (10:17)
[2017-05-23] MEDS: VITAMIN D PO SCH (10:17)
[2017-05-23] MEDS: Vitamin C 500 MG PO SCH (10:17)
[2017-05-23] MEDS: ENOXAPARIN SODIUM SQ SCH ×2 (10:17→23:01)
--- NOTE | 2017-05-23 11:15 | PCM.NOTE ---
Date and Time: 05/23/17 1113 Subjective Assessment: feeling well today pain resolved breathing improved incisions healing Objective Exam General Appearance: no apparent distress, alert, obese Neurologic Exam: alert, oriented x 3, cooperative, normal mood/affect, nml cerebellar function, sensation nml, No motor deficits Skin Exam: normal color, warm, dry Eye Exam: PERRL, EOMI, eyes nml inspection Ears, Nose, Throat Exam: normal ENT inspection, pharynx normal, moist mucous membranes Neck Exam: normal inspection, non-tender, supple, full range of motion Respiratory Exam: normal breath sounds, lungs clear, No respiratory distress Cardiovascular Exam: regular rate/rhythm, normal heart sounds Gastrointestinal/Abdomen Exam: soft, No tenderness, No mass Extremity Exam: normal inspection, normal range of motion Back Exam: normal inspection, normal range of motion, No CVA tenderness, No vertebral tenderness Pelvic Exam: deferred Rectal Exam: deferred OBJECTIVE DATA Vital Signs: Vital Signs - 24 hr Temp Pulse Resp BP Pulse Ox 05/23/17 07:42 74 18 96 05/23/17 07:29 98.4 F 70 18 184/75 93 L 05/23/17 07:00 18 05/23/17 04:00 97.9 F 69 16 143/79 96 05/23/17 03:00 18 05/23/17 00:00 97.9 F 72 18 192/88 95 05/22/17 23:00 18 05/22/17 22:04 76 18 96 05/22/17 20:00 98.4 F 77 18 152/67 94 L 05/22/17 19:00 16 05/22/17 16:00 97.2 F 86 16 156/82 05/22/17 15:00 18 Oxygen-Last 24 hours O2 Percentage 2 Liters = 28% O2 Percentage 2 Liters = 28% O2 Percentage 2 Liters = 28% O2 Percentage 2 Liters = 28% O2 Percentage 2 Liters = 28% Pain Assessment - Last Documented Pain Scale Used 0-10 Pain Scale Intake and Output: Intake & Output 05/20/17 05/21/17 05/22/17 05/23/17 11:59 11:59 11:59 11:59 Intake Total 480 3373 1900 Output Total 703 287 4082 Balance 330 2623 400 Weight 99.1 kg 99.1 kg Lab Results: Accuchecks Date 05/23/17 Date 05/22/17 Date 05/22/17 Date 05/22/17 Time 07:30 Time 21:30 Time 16:30 Time 11:30 Accucheck Value: 87 Accucheck Value: 133 Accucheck Value: 168 Accucheck Value: 119 Lab Results-Last 24 Hours 05/23/17 05/23/17 05/23/17 Range/Units 05:25 05:25 05:25 WBC 9.8 (4.0-10.5) K/mm3 RBC 3.33 L (4.1-5.4) M/mm3 Hgb 9.7 L (12.0-16.0) gm/dl Hct 30.8 L (35-47) % MCV 92.5 (78-100) fl MCH 29.1 (26-32) pg MCHC 31.5 L (32-36) g/dl RDW 15.0 H (11.5-14.0) % Plt Count 283 (150-450) K/mm3 MPV 10.6 H (6-9.5) fl INR 1.39 (0.8-3.0) Sodium 141 (136-145) mEq/L Potassium 3.8 (3.5-5.1) mEq/L Chloride 108 H (98-107) mEq/L Carbon Dioxide 23.4 (21-32) mEq/L Anion Gap 12.9 (5-15) MEQ/L BUN 23 H (9-20) mg/dL Creatinine 1.07 (0.55-1.30) mg/dl Estimated GFR 53 ML/MIN Glucose 96 (70-110) MG/DL Calcium 8.7 (8.5-10.1) mg/dL Assessment/Plan (1) Pulmonary embolism Current Visit: Yes Status: Acute Qualifiers: Chronicity: acute Acute cor pulmonale presence: without acute cor pulmonale Assessment & Plan: She has a intracranial hemorrhage last july and has a vp genetic shunt continue monitor today in hospital on the lovenox bridge to warfarin possible d/c tomorrow if stable to [facility] to [facility] bridge taken off O2 during exam today will see how she tolerates this Code(s): I26.99 - OTHER PULMONARY EMBOLISM WITHOUT ACUTE COR PULMONALE (2) DVT (deep venous thrombosis) Current Visit: Yes Status: Acute Qualifiers: DVT location: lower extremity Chronicity: acute Laterality: left Code(s): I82.409 - ACUTE EMBOLISM AND THOMBOS UNSP DEEP VN UNSP LOWER EXTREMITY (3) Pneumonia Current Visit: Yes Status: Acute Qualifiers: Pneumonia type: due to unspecified organism Laterality: right Lung location: lower lobe of lung Qualified Code(s): J18.1 - Lobar pneumonia, unspecified organism Assessment & Plan: on levaquin Code(s): J18.9 - PNEUMONIA, UNSPECIFIED ORGANISM (4) Acute kidney injury Current Visit: Yes Status: Resolved Code(s): N17.9 - ACUTE KIDNEY FAILURE, UNSPECIFIED (5) History of melanoma Current Visit: Yes Status: Acute Code(s): Z85.820 - PERSONAL HISTORY OF MALIGNANT MELANOMA OF SKIN (6) S/p nephrectomy Current Visit: Yes Status: Acute Code(s): Z90.5 - ACQUIRED ABSENCE OF KIDNEY (7) Influenza A Current Visit: Yes Status: Resolved Code(s): J10.1 - FLU DUE TO OTH IDENT INFLUENZA VIRUS W OTH RESP MANIFEST
[2017-05-23] MEDS: Coreg 6.25 MG PO SCH ×2 (11:58→23:00)
[2017-05-23] MEDS: Coumadin 5 MG PO SCH (18:08)
[2017-05-23] MEDS: ZOCOR 20MG PO SCH (23:01)
[2017-05-23] MEDS: Levaquin 250MG/50ML D5W 250 MG/50 ML BAG IV SCH (23:01)
[2017-05-24 06:02] LABS: Hemoglobin 9.6 gm/dl (12.0-16.0); Mean Cell Volume 92.8 fl (78-100); Mean Corpuscular Hemoglobin 28.7 pg (26-32); Mean Platelet Volume 10.7 fl (6-9.5); Platelet Count 276 K/mm3 (150-450); Red Blood Count 3.34 M/mm3 (4.1-5.4); Red Cell Distribution Width 15.4 % (11.5-14.0); White Blood Count 8.1 K/mm3 (4.0-10.5)
[2017-05-24 06:29] LABS: ANION GAP 13.1 MEQ/L (5-15); Calcium 8.5 mg/dL (8.5-10.1); Carbon Dioxide 23.9 mEq/L (21-32); Creatinine 1 1.24 mg/dl (0.55-1.30); Potassium 4.1 mEq/L (3.5-5.1)
[2017-05-24 06:34] LABS: INR 1.75 (0.8-3.0)
--- NOTE | 2017-05-24 09:15 | PCM.DCORD ---
- Discharge Discharge Date: 05/24/17 Disposition: DC TO [facility] Condition: Fair Prescriptions: No Action Ascorbate Calcium [Vitamin C] 1,000 mg PO DAILY Calc/D3/Mag/Zn/Franck/René/[place] [Calcium 600 mg Plus Vit D Tab] 1 each PO DAILY Pravastatin Sodium [Pravachol] 40 mg PO QHS Famotidine 20 mg [Pepcid 20 MG] 10 mg PO DAILY Cholecalciferol (Vitamin D3) [D-2000] 2,000 unit PO DAILY Albuterol 2.5 mg/3 ml Neb [Proventil 2.5 mg/3 ml Neb] 2.5 mg IH Q4H PRN PRN Reason: Shortness Of Breath Oxycodone HCl 5 mg Ir [Oxy-IR 5 MG] 5 mg PO Q4H PRN PRN Reason: Pain Prednisone 20 mg [Deltasone 20 mg] 20 mg PO DAILY Metformin HCl [Metformin HCl ER] 1,000 mg PO EVENING MEAL Carvedilol 3.125 mg [Coreg 3.125 MG] 3.125 mg PO BID Acetaminophen 325 mg [Tylenol 325 mg] 650 mg PO Q4H PRN PRN Reason: Pain Sennosides/Docusate Sodium [Senna-Docusate Sodium Tablet] 1 each PO Q12H PRN PRN Reason: Constipation Follow up with: MATILDA MOSER [Primary Care Provider] - Forms: Patient Portal Information
[2017-05-24] MEDS: VITAMIN D PO SCH (10:34)
[2017-05-24] MEDS: Vitamin C 500 MG PO SCH (10:35)
[2017-05-24] MEDS: Pepcid 20 MG PO SCH (10:35)
[2017-05-24] MEDS: Calcium 500MG W/Vit D Tablet PO SCH (10:35)
[2017-05-24] MEDS: ENOXAPARIN SODIUM SQ SCH (10:36)
[2017-05-24] MEDS: Coreg 6.25 MG PO SCH (10:36)
[2017-05-24 11:07] VITALS: BP 140/66; PULSE 89; O2SAT 96
--- NOTE | 2017-05-24 13:41 | DS ---
DISCHARGE DIAGNOSES: 1) PULMONARY EMBOLISM. 2) LEFT LOWER LEG DEEP VENOUS THROMBOSIS. 3) PNEUMONIA. 4) HISTORY OF RECENT RIGHT RADICAL NEPHRECTOMY FOR RENAL MASS. 5) HISTORY OF MELANOMA. 6) HYPERLIPIDEMIA. 7) HISTORY OF VENTRICULOPERITONEAL SHUNT. 8) RECENT INFLUENZA A. DISCHARGE PHYSICAL EXAMINATION: VITALS: Temperature current 98.2F, temperature max 99.4F, heart rate 71 to 89, respiratory rate 18 to 20, blood pressure 118 to 141 over 60 to 66. Discharge weight 99.1 kg. Oxygen saturation 93 to 97% on 2 liters nasal cannula. GENERAL: The patient is a pleasant talkative lady sitting up in bed in no acute distress. CVS: She has a regular rate and rhythm. No murmurs, gallops or rubs are appreciated. CHEST: Clear to auscultation bilaterally. No crackles or wheezes. ABDOMEN: Soft, nontender, nondistended with normal bowel sounds. EXTREMITIES: She has trace edema bilaterally. SKIN: A 1.5 x 1.5 cm scaling patch on her right lower leg otherwise skin is warm, dry and intact. HOSPITAL COURSE: 1) PULMONARY EMBOLISM: She had an elevated D-dimer in the emergency department. A V/Q scan was ordered and was read as a small focus of right middle lobe ventilation/perfusion mismatch, criteria for pulmonary embolism is intermediate possibility by the PIOPED criteria. Please see the radiologist dictation for full report. She had also been found to have deep venous thrombosis of left lower extremity so Lovenox anticoagulation dose was started. She was also started on Coumadin. At the time of her discharge her international normalized ratio was 1.75. She is to continue to have daily international normalized ratios and will plan to finish five days of Lovenox and if her international normalized ratio is 2 or above at that time will plan to discontinue the Lovenox. Right now she is scheduled to have Lovenox through the end of the day on 05/26/2017. 2) PNEUMONIA: On her first CT read by [facility] there was a concern for pneumonia in the right lower lung field. She was started on levofloxacin and completed five days of this antibiotic so I have not discharged her on any antibiotic. She is needing 2 liters of oxygen by nasal cannula but hopefully as she progresses through rehab she will not need this at home. 3) LEFT LOWER EXTREMITY DEEP VENOUS THROMBOSIS: This was found on Doppler. Please see the radiologist report. She was anticoagulated as above. 4) HISTORY OF RECENT RIGHT RADICAL NEPHRECTOMY FOR RENAL MASS. She has follow up already scheduled with her urologist and oncologist. 5) HYPERLIPIDEMIA: She was continued on her home medication. 6) RECENT INFLUENZA A: She already finished her Tamiflu and seems to be recovering from this well. DISCHARGE MEDICATIONS: Carvedilol 6.25 mg p.o. b.i.d., warfarin 5 mg daily, Lovenox 100 mg subcutaneously every 12 hours with her last dose on 05/26/2017. She is to resume her other home medications except she has finished the prednisone. She is to be on 2 liters nasal cannula. International normalized ratio daily. PT/OT evaluation and treatment. DISPOSITION: The patient was discharged to [facility] in fair condition.
== END 2017-05-24 11:58 | DRG 175 ==
LOC: ED 22:49 → MED SURG 05-21 03:10
PROVIDERS: ADMIT Internal Medicine; ATTEND Internal Medicine
DX: I26.99 Other pulmonary embolism without acute cor pulmonale (principal); I10 Essential (primary) hypertension; E78.00 Pure hypercholesterolemia, unspecified; M19.90 Unspecified osteoarthritis, unspecified site; K21.9 Gastro-esophageal reflux disease without esophagitis; Z86.73 Personal history of transient ischemic attack (TIA), and cerebral infarction without residual deficits; Z85.3 Personal history of malignant neoplasm of breast; J18.1 Lobar pneumonia, unspecified organism; Z85.528 Personal history of other malignant neoplasm of kidney; I82.409 Acute embolism and thrombosis of unspecified deep veins of unspecified lower extremity; N17.9 Acute kidney failure, unspecified; Z85.820 Personal history of malignant melanoma of skin; Z90.5 Acquired absence of kidney; J10.1 Influenza due to other identified influenza virus with other respiratory manifestations; E78.5 Hyperlipidemia, unspecified; R79.1 Abnormal coagulation profile; Z79.01 Long term (current) use of anticoagulants; Z79.899 Other long term (current) drug therapy
CPT/HCPCS: 36000; 36415; 71045; 74176; 78582; 80048; 80053; 81000; 82962; 83036; 83605; 83690; 85025; 85027; 85379; 85610; 87040; 93970; 94640; 94760; 99285; A9540; A9567; J1650; J1956; J3370; A9270-GY

== ENCOUNTER 2022-02-10 21:41 | Inpatient (IN) | payer MEDICARE, OTHER ==
[2022-02-10 22:28] LABS: Absolute Neutrophil Ct (ANC) 2.66 x10^3/uL (1.4-6.9); Basophil (Absolute #) 0.03 x10^3/uL (0-0.4); Eosinophil % 3.6 % (0.00-5.0); Eosinophil (Absolute #) 0.18 x10^3/uL (0-0.5); Hematocrit 36.5 % (35-47); Hemoglobin 11.8 g/dL (12.0-16.0); Lymphocyte (Absolute #) 1.75 x10^3/uL (1.0-4.6); Lymphocytes % 35.4 % (24.0-44.0); Mean Cell Volume 96.3 fL (78-100); Mean Corpuscular Hemoglobin 31.1 pg (26-32); Mean Corpuscular Hgb Concent. 32.3 g/dL (32-36); Mean Platelet Volume 10.8 fL (7.5-11.0); Monocyte (Absolute #) 0.32 x10^3/uL (0.0-1.3); Monocytes % 6.5 % (0.0-12.0); Neutrophil % 53.7 % (36.0-66.0); Platelet Count 166 x10^3/uL (150-450); Red Blood Count 3.79 x10^6/uL (4.1-5.4); Red Cell Distribution Width 14.4 % (11.5-14.0)
[2022-02-10] MEDS: Sodium Chloride 0.9% 1000 ML 1,000 ML IV SCH (22:28)
[2022-02-10] MEDS ORDERED: ANTIVERT 25 MG PO ONE (22:42)
[2022-02-10 22:51] LABS: ALBUMIN 4.2 g/dL (3.5-5.0); ALKALINE PHOSPHATASE 62 U/L (38-126); ANION GAP 10.7 MEQ/L (5-15); BLOOD UREA NITROGEN 21 mg/dL (7-17); CHLORIDE 106 mmol/L (98-107); Calcium 8.8 mg/dL (8.4-10.2); Carbon Dioxide 27 mmol/L (22-30); Creatinine 1 0.82 mg/dL (0.52-1.04); EST GLOMERULAR FILTRATION RATE > 60.0 ML/MIN; Glucose 156 mg/dL (74-106); NT PRO BNP 367 pg/mL (0-1800); Potassium 3.8 mmol/L (3.5-5.1); SGOT/AST 56 U/L (14-36); SGPT/ALT 33 U/L (0-35); SODIUM 139 mmol/L (137-145); Total Protein 8.3 g/dL (6.3-8.2)
[2022-02-10] MEDS ORDERED: ANTIVERT 25 MG ONE ×2 (23:09→23:20)
[2022-02-10 23:21] LABS: INFLUENZA A NEGATIVE (NEGATIVE); INFLUENZA B NEGATIVE (NEGATIVE); RESPIRATORY SYNCTIAL VIRUS NEGATIVE (Negative); SARS-CoV-2 Xpert Express NEGATIVE (NEGATIVE)
--- NOTE | 2022-02-10 23:59 | ERPHSYRPT ---
- History of Present Illness Time Seen by Provider: 02/10/22 21:55 Historian: patient Exam Limitations: no limitations Patient Subjective Stated Complaint: pt states she has had dizziness tonight and her bp would not read on her bp cuff at home Triage Nursing Assessment: pt alert and oriented, answers questions approp. respirations nonlabored with lungs cta. pt back to room per wheelchair. assit of 1 to stretcher with unsteady gait noted. skin warm and dry. pupils equal and reactive. bilat upper and lower ext strength equal and wnl. Physician History: Patient is a 81-year-old female presents to emergency department for evaluation of dizziness. Patient states she experienced an acute onset of dizziness approximately an hour 45 minutes prior to arrival. Patient checked her blood pressure. Blood pressure was elevated. Patient took her home blood pressure medication approximately 30 minutes prior to arrival. Upon arrival to our ED patient was found to be hypertensive. Her systolic blood pressure was 236. However shortly after arrival patient's dizziness began to improve. Patient denied slurred speech. No extremity weakness. No arm weakness. No associated nausea vomiting or headache. Patient accompanied by her son. Symptoms are mild to moderate in intensity. No specific worsening improving factors. They voiced no other complaints or concerns at this time. Patient denies history of the same. Allergies/Adverse Reactions: cefaclor [From Ceclor] Allergy (Intermediate, Verified 02/10/22 23:28) Rash Home Medications: Ascorbate Calcium [Vitamin C] 500 mg PO BID 10/01/15 [History] Pravastatin Sodium [Pravachol] 80 mg PO QHS 05/21/17 [History] Hx Tetanus, Diphtheria Vaccination/Date Given: Yes (feb 2021) Hx Influenza Vaccination/Date Given: No Hx Pneumococcal Vaccination/Date Given: Yes Immunizations Up to Date: Yes Travel Risk - International Travel Have you traveled outside of the country in past 3 weeks: No - Coronavirus Screening Are you exhibiting any of the following symptoms?: No Close contact with a COVID-19 positive Pt in past 14-21 Days: No - Vaccine Status Have you recieved a Covid-19 vaccination: Yes 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 - Vaccination Dates Date of 2cond Vaccination (if applicable): 2020 - Review of Systems Constitutional: No Symptoms, No Fever, No Chills Eyes: No Symptoms Ears, Nose, & Throat: No Symptoms Respiratory: No Symptoms, No Cough, No Dyspnea Cardiac: No Symptoms, No Chest Pain, No Edema, No Syncope Abdominal/Gastrointestinal: No Symptoms, No Abdominal Pain, No Nausea, No Vomiting, No Diarrhea Genitourinary Symptoms: No Symptoms, No Dysuria Musculoskeletal: No Symptoms, No Back Pain, No Neck Pain Skin: No Symptoms, No Rash Neurological: No Symptoms, No Dizziness, No Focal Weakness, No Sensory Changes Psychological: No Symptoms Endocrine: No Symptoms Hematologic/Lymphatic: No Symptoms Immunological/Allergic: No Symptoms All Other Systems: Reviewed and Negative - Past Medical History Pertinent Past Medical History: Yes Neurological History: TIA, Other ENT History: Cataracts Cardiac History: High Cholesterol, Hypertension Respiratory History: COPD Endocrine Medical History: Diabetes Type II, Hypothyroidism Musculoskeletal History: Arthritis GI Medical History: GERD History: Kidney Cancer, Renal Disease Psycho-Social History: No Pertinent History Female Reproductive Disorders: Breast Cancer Other Medical History: Shunt placed 1996, unsure of location of brain. melanoma. Kidney cancer and removal 2016. 2L O2 at night via NC - Past Surgical History Past Surgical History: Yes Neuro Surgical History: Brain Shunt Cardiac: No Pertinent History Respiratory: No Pertinent History Gastrointestinal: No Pertinent History Genitourinary: Kidney Surgery Musculoskeletal: No Pertinent History Female Surgical History: Hysterectomy, Lumpectomy Other Surgical History: BREAST CA, WITH LUMPECTOMY AND CHIP PLACEMENT,. BUNION SURGERY, CATARACT SURGERY WITH CORRECTIVE LENS IMPLANTS BILATERALLY, Right nephrectomy 04/28/17 - Social History Smoking Status: Never smoker Exposure to second hand smoke: No Drug Use: none Patient Lives Alone: Yes - Nursing Vital Signs Nursing Vital Signs: Initial Vital Signs Temperature 97.8 F 02/10/22 21:55 Pulse Rate 65 02/10/22 21:55 Respiratory Rate 16 02/10/22 21:55 Blood Pressure 236/85 02/10/22 21:55 O2 Sat by Pulse Oximetry 96 02/10/22 21:55 Pain Scale Pain Intensity 0 - Physical Exam General Appearance: no apparent distress, alert Eye Exam: PERRL/EOMI, eyes nml inspection Ears, Nose, Throat Exam: normal ENT inspection, pharynx normal, moist mucous membranes Neck Exam: normal inspection, non-tender, supple, full range of motion Respiratory Exam: normal breath sounds, lungs clear, No respiratory distress Cardiovascular Exam: regular rate/rhythm, normal heart sounds Gastrointestinal/Abdomen Exam: soft, other (Epigastric and right upper quadrant tenderness to palpation.), No tenderness, No mass Back Exam: normal inspection, normal range of motion, No CVA tenderness, No vertebral tenderness Extremity Exam: normal inspection, normal range of motion, pelvis stable Neurologic Exam: alert, oriented x 3, cooperative, normal mood/affect, sensation nml, other (Unsteady gait), No motor deficits Skin Exam: normal color, warm, dry Lymphatic Exam: No adenopathy SpO2 Interpretation: normal SpO2: 97 O2 Delivery: Room Air - Course Nursing assessment & vital signs reviewed: Yes EKG Interpreted by Me: RATE (66), Sinus Rhythm, NORMAL AXIS, NORMAL INTERVALS - CT Exams Abdomen/Pelvis CT Interpretation: Tele-radiologist Report (Right parietal approach ventriculostomy shunt catheter tip projects just left of midline near the frontal horns of the lateral ventricles unchanged. The ventricles are smaller than on prior study. There is mild prominence of the CSF space around the cerebral hemispheres. Chronic hematomas versus ) Ordered Tests: Active Orders 24 hr Category Date Time Status Door Machine Operator STAT Care 02/10/22 22:16 Active EKG-ER Only STAT Care 02/10/22 22:15 Active IV Insertion STAT Care 02/10/22 22:15 Active POCT Glucose Check STAT Care 02/10/22 22:20 Active Pulse Oximetry (ED) STAT Care 02/10/22 22:15 Active HEAD WITHOUT CONTRAST [CT] Stat Exams 02/10/22 22:09 Taken CBC W DIFF Stat Lab 02/10/22 22:20 Completed CMP Stat Lab 02/10/22 22:20 Completed CULTURE,URINE Stat Lab 02/11/22 00:17 Received NT PRO BNP Stat Lab 02/10/22 22:20 Completed POCT GLUCOSE Stat Lab 02/10/22 22:18 Completed TROPONIN Q4H Lab 02/10/22 22:20 Completed TROPONIN Q4H Lab 02/11/22 02:15 Ordered TROPONIN Q4H Lab 02/11/22 06:15 Ordered UA W/RFX CULTURE Stat Lab 02/11/22 00:17 Completed Medication Summary Generic Name Dose Route Start Last Admin Trade Name Freq PRN Reason Stop Dose Admin Sodium Chloride 1,000 mls @ 75 mls/hr 02/10/22 22:15 02/10/22 22:28 Sodium Chloride 0.9% 1000 Ml IV 03/12/22 22:14 75 mls/hr .[id number] LEILA Administration Discontinued Medications Generic Name Dose Route Start Last Admin Trade Name Chas PRN Reason Stop Dose Admin Meclizine HCl 25 mg 02/10/22 22:42 02/10/22 23:14 Meclizine Hcl 25 Mg Tablet PO 02/10/22 22:43 25 mg STAT ONE Administration Meclizine HCl Confirm 02/10/22 23:09 Meclizine Hcl 25 Mg Tablet Administered 02/10/22 23:10 Dose 25 mg .ROUTE .STK-MED ONE Meclizine HCl Confirm 02/10/22 23:20 Meclizine Hcl 25 Mg Tablet Administered 02/10/22 23:21 Dose 25 mg .ROUTE .STK-MED ONE Lab/Rad Data: Laboratory Result Diagrams 02/10/22 22:20 02/10/22 22:20 Laboratory Results 02/11/22 02/10/22 02/10/22 Range/Units 00:17 22:40 22:20 WBC (4.0-10.5) x10^3/uL RBC (4.1-5.4) x10^6/uL Hgb (12.0-16.0) g/dL Hct (35-47) % MCV (78-100) fL MCH (26-32) pg MCHC (32-36) g/dL RDW (11.5-14.0) % Plt Count (150-450) x10^3/uL MPV (7.5-11.0) fL Gran % (36.0-66.0) % Immature Gran % (Auto) (0.00-0.4) % Nucleat RBC Rel Count (0.00-0.1) % Eos # (Auto) (0-0.5) x10^3/uL Immature Gran # (Auto) (0.00-0.03) x10^3u/L Absolute Lymphs (auto) (1.0-4.6) x10^3/uL Absolute Monos (auto) (0.0-1.3) x10^3/uL Absolute Nucleated RBC (0.00-0.01) x10^3u/L Lymphocytes % (24.0-44.0) % Monocytes % (0.0-12.0) % Eosinophils % (0.00-5.0) % Basophils % (0.0-0.4) % Absolute Granulocytes (1.4-6.9) x10^3/uL Basophils # (0-0.4) x10^3/uL Sodium 139 (137-145) mmol/L Potassium 3.8 (3.5-5.1) mmol/L Chloride 106 (98-107) mmol/L Carbon Dioxide 27 (22-30) mmol/L Anion Gap 10.7 (5-15) MEQ/L BUN 21 H (7-17) mg/dL Creatinine 0.82 (0.52-1.04) mg/dL Estimated GFR > 60.0 ML/MIN Glucose 156 H (74-106) mg/dL POC Glucometer (74 to 106) mg/dL Calcium 8.8 (8.4-10.2) mg/dL Total Bilirubin 0.50 (0.2-1.3) mg/dL AST 56 H (14-36) U/L ALT 33 (0-35) U/L Alkaline Phosphatase 62 (38-126) U/L Troponin I (0.000-0.034) ng/mL NT-Pro-B Natriuret Pep 367 (0-1800) pg/mL Serum Total Protein 8.3 H (6.3-8.2) g/dL Albumin 4.2 (3.5-5.0) g/dL Urinalys Dipstick Clnc MAIN LAB Urine Color YELLOW (YELLOW) Urine Appearance CLEAR (CLEAR) Urine pH 6.0 (5-6) Ur Specific Ceres 1.010 (1.005-1.025) POC Urine Protein Conf 100 (Negative) Urine Ketones NEGATIVE (NEGATIVE) Urine Nitrite NEGATIVE (NEGATIVE) Urine Bilirubin NEGATIVE (NEGATIVE) Urine Urobilinogen 0.2 (0-1) mg/dL Urine Leukocytes NEGATIVE (NEGATIVE) Urine WBC (Auto) 3-5 (0-5) /HPF Urine RBC (Auto) NONE (0-2) /HPF U Epithel Cells (Auto) NONE (FEW) /HPF Urine Bacteria (Auto) NONE (NEGATIVE) /HPF Urine RBC NEGATIVE (0-5) Lionel/ul Urine Mucus (Auto) SLIGHT (NEGATIVE) /HPF Ur Culture Indicated? YES Urine Glucose NEGATIVE (NEGATIVE) mg/dL Influenza Type A Ag NEGATIVE (NEGATIVE) Influenza Type B Ag NEGATIVE (NEGATIVE) RSV (PCR) NEGATIVE (Negative) SARS-CoV-2 (PCR) NEGATIVE (NEGATIVE) 02/10/22 02/10/22 02/10/22 Range/Units 22:20 22:20 22:18 WBC 5.0 (4.0-10.5) x10^3/uL RBC 3.79 L (4.1-5.4) x10^6/uL Hgb 11.8 L (12.0-16.0) g/dL Hct 36.5 (35-47) % MCV 96.3 (78-100) fL MCH 31.1 (26-32) pg MCHC 32.3 (32-36) g/dL RDW 14.4 H (11.5-14.0) % Plt Count 166 (150-450) x10^3/uL MPV 10.8 (7.5-11.0) fL Gran % 53.7 (36.0-66.0) % Immature Gran % (Auto) 0.2 (0.00-0.4) % Nucleat RBC Rel Count 0.0 (0.00-0.1) % Eos # (Auto) 0.18 (0-0.5) x10^3/uL Immature Gran # (Auto) 0.01 (0.00-0.03) x10^3u/L Absolute Lymphs (auto) 1.75 (1.0-4.6) x10^3/uL Absolute Monos (auto) 0.32 (0.0-1.3) x10^3/uL Absolute Nucleated RBC 0.00 (0.00-0.01) x10^3u/L Lymphocytes % 35.4 (24.0-44.0) % Monocytes % 6.5 (0.0-12.0) % Eosinophils % 3.6 (0.00-5.0) % Basophils % 0.6 (0.0-0.4) % Absolute Granulocytes 2.66 (1.4-6.9) x10^3/uL Basophils # 0.03 (0-0.4) x10^3/uL Sodium (137-145) mmol/L Potassium (3.5-5.1) mmol/L Chloride (98-107) mmol/L Carbon Dioxide (22-30) mmol/L Anion Gap (5-15) MEQ/L BUN (7-17) mg/dL Creatinine (0.52-1.04) mg/dL Estimated GFR ML/MIN Glucose (74-106) mg/dL POC Glucometer 151 H (74 to 106) mg/dL Calcium (8.4-10.2) mg/dL Total Bilirubin (0.2-1.3) mg/dL AST (14-36) U/L ALT (0-35) U/L Alkaline Phosphatase (38-126) U/L Troponin I < 0.012 (0.000-0.034) ng/mL NT-Pro-B Natriuret Pep (0-1800) pg/mL Serum Total Protein (6.3-8.2) g/dL Albumin (3.5-5.0) g/dL Urinalys Dipstick Clnc Urine Color (YELLOW) Urine Appearance (CLEAR) Urine pH (5-6) Ur Specific Ceres (1.005-1.025) POC Urine Protein Conf (Negative) Urine Ketones (NEGATIVE) Urine Nitrite (NEGATIVE) Urine Bilirubin (NEGATIVE) Urine Urobilinogen (0-1) mg/dL Urine Leukocytes (NEGATIVE) Urine WBC (Auto) (0-5) /HPF Urine RBC (Auto) (0-2) /HPF U Epithel Cells (Auto) (FEW) /HPF Urine Bacteria (Auto) (NEGATIVE) /HPF Urine RBC (0-5) Lionel/ul Urine Mucus (Auto) (NEGATIVE) /HPF Ur Culture Indicated? Urine Glucose (NEGATIVE) mg/dL Influenza Type A Ag (NEGATIVE) Influenza Type B Ag (NEGATIVE) RSV (PCR) (Negative) SARS-CoV-2 (PCR) (NEGATIVE) - Progress Progress: improved Progress Note: Case discussed with telemetry neuro. 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 Neurologist feels there may be ventriculomegaly. She is advising transfer hospital with neurosurgery. 02/10/22 23:[address] Meza at who declined transfer from a neurosurgery perspective. He reviewed the CT scan and states that the findings from today are comparable to previous CT scans and he does not see any acute change. I you declined transfer stating that there is no need for specialty care and given their capacity they cannot accept patient. [facility] neurosurgery declined transfer 02/11/22 01:24 Dr. Cook from [facility] feels the patient does not have a neurosurgical issue. No neurosurgical basis to transfer. We are currently awaiting hospitalist return call 02/11/22 01:[address] Godinez hospitalist at [facility]. He accepts patient however there is a 3 to 5-day wait for hospital bed. Case discussed with Dr. Thibodeaux. In light of several neurosurgeons agreeing that there is no neurosurgical issue after review of the CAT scan we will admit patient at [facility] for further evaluation and treatment. Plan of care discussed with patient. She agrees to admission at [facility] for further evaluation and treatment. Patient will be admitted for further work-up of hypertensive urgency and dizziness. Portions of this note were created with voice recognition technology. There may be grammatical, spelling, punctuation or sound alike errors 02/11/22 02:[address] Jesse Will see patient in: office - Departure Departure Disposition: Transfer Clinical Impression: Hypertensive urgency, Dizziness, Unsteady gait Condition: Stable Critical Care Time: No Referrals: MATILDA MOSRE [Primary Care Provider] - Follow up/PCP as directed
[2022-02-11 00:28] LABS: Appearance CLEAR (CLEAR); Bilirubin NEGATIVE (NEGATIVE); Dipstick done @ ? MAIN LAB; Glucose NEGATIVE (NEGATIVE); Ketones NEGATIVE (NEGATIVE); Nitrite NEGATIVE (NEGATIVE); Protein,Urine Dip 100 (Negative); RBC NEGATIVE Ery/ul (0-5); Urobilinogen 0.2 mg/dL (0-1)
[2022-02-11 00:36] LABS: Mucus SLIGHT /HPF (NEGATIVE)
[2022-02-11 00:37] LABS: Urine Cultured Indicated? YES
--- NOTE | 2022-02-11 02:55 | ERPHSYRPT ---
- History of Present Illness Time Seen by Provider: 02/10/22 21:55 Source: patient Exam Limitations: no limitations Patient Subjective Stated Complaint: pt states she has had dizziness tonight and her bp would not read on her bp cuff at home Triage Nursing Assessment: pt alert and oriented, answers questions approp. respirations nonlabored with lungs cta. pt back to room per wheelchair. assit of 1 to stretcher with unsteady gait noted. skin warm and dry. pupils equal and reactive. bilat upper and lower ext strength equal and wnl. Physician History: Patient is a 81-year-old female presents to emergency department for evaluation of dizziness. Patient states she experienced an acute onset of dizziness approximately an hour 45 minutes prior to arrival. Patient checked her blood pressure. Blood pressure was elevated. Patient took her home blood pressure medication approximately 30 minutes prior to arrival. Upon arrival to our ED patient was found to be hypertensive. Her systolic blood pressure was 236. H owever shortly after arrival patient's dizziness began to improve. Patient denied slurred speech. No extremity weakness. No arm weakness. No associated nausea vomiting or headache. Patient accompanied by her son. Symptoms are mild to moderate in intensity. No specific worsening improving factors. They voiced no other complaints or concerns at this time. Patient denies history of the same. Timing/Duration: today (Approximately an hour and 45 minutes prior to arrival.) Severity: moderate Modifying Factors: Improves With: nothing Associated Symptoms: denies symptoms Allergies/Adverse Reactions: cefaclor [From Ceclor] Allergy (Intermediate, Verified 02/10/22 23:28) Rash Home Medications: Ascorbate Calcium [Vitamin C] 500 mg PO BID 10/01/15 [History] Pravastatin Sodium [Pravachol] 80 mg PO QHS 05/21/17 [History] Hx Tetanus, Diphtheria Vaccination/Date Given: Yes (feb 2021) Hx Influenza Vaccination/Date Given: No Hx Pneumococcal Vaccination/Date Given: Yes Immunizations Up to Date: Yes Travel Risk - International Travel Have you traveled outside of the country in past 3 weeks: No - Coronavirus Screening Are you exhibiting any of the following symptoms?: No Close contact with a COVID-19 positive Pt in past 14-21 Days: No - Vaccine Status Have you recieved a Covid-19 vaccination: Yes Associate Vice President: Moderna - Vaccination Dates Date of 2cond Vaccination (if applicable): 2020 - Review of Systems Constitutional: No Symptoms, No Fever, No Chills Eyes: No Symptoms Ears, Nose, & Throat: No Symptoms Respiratory: No Symptoms, No Cough, No Dyspnea Cardiac: No Symptoms, No Chest Pain, No Edema, No Syncope Abdominal/Gastrointestinal: No Symptoms, No Abdominal Pain, No Nausea, No Vomiting, No Diarrhea Genitourinary Symptoms: No Symptoms, No Dysuria Musculoskeletal: No Symptoms, No Back Pain, No Neck Pain Skin: No Symptoms, No Rash Neurological: No Symptoms, No Dizziness, No Focal Weakness, No Sensory Changes Psychological: No Symptoms Endocrine: No Symptoms Hematologic/Lymphatic: No Symptoms Immunological/Allergic: No Symptoms All Other Systems: Reviewed and Negative - Past Medical History Pertinent Past Medical History: Yes Neurological History: TIA, Other ENT History: Cataracts Cardiac History: High Cholesterol, Hypertension Respiratory History: COPD Endocrine Medical History: Diabetes Type II, Hypothyroidism Musculoskeletal History: Arthritis GI Medical History: GERD History: Kidney Cancer, Renal Disease Psycho-Social History: No Pertinent History Female Reproductive Disorders: Breast Cancer Other Medical History: Shunt placed 1996, unsure of location of brain. porfirio anoma. Kidney cancer and removal 2016. 2L O2 at night via NC - Past Surgical History Past Surgical History: Yes Neuro Surgical History: Brain Shunt Cardiac: No Pertinent History Respiratory: No Pertinent History Gastrointestinal: No Pertinent History Genitourinary: Kidney Surgery Musculoskeletal: No Pertinent History Female Surgical History: Hysterectomy, Lumpectomy Other Surgical History: BREAST CA, WITH LUMPECTOMY AND CHIP PLACEMENT,. BUNION SURGERY, CATARACT SURGERY WITH CORRECTIVE LENS IMPLANTS BILATERALLY, Right nephrectomy 04/28/17 - Social History Smoking Status: Never smoker Exposure to second hand smoke: No Drug Use: none Patient Lives Alone: Yes - Nursing Vital Signs Nursing Vital Signs: Initial Vital Signs Temperature 97.8 F 02/10/22 21:55 Pulse Rate 65 02/10/22 21:55 Respiratory Rate 16 02/10/22 21:55 Blood Pressure 236/85 02/10/22 21:55 O2 Sat by Pulse Oximetry 96 02/10/22 21:55 Pain Scale Pain Intensity 0 - Physical Exam General Appearance: no apparent distress, alert Eye Exam: PERRL/EOMI, eyes nml inspection Ears, Nose, Throat Exam: normal ENT inspection, TMs normal, pharynx normal, mo ist mucous membranes Neck Exam: normal inspection, non-tender, supple, full range of motion Respiratory Exam: normal breath sounds, lungs clear, airway intact, No respiratory distress Cardiovascular Exam: regular rate/rhythm, normal heart sounds, normal peripheral pulses Gastrointestinal/Abdomen Exam: soft, normal bowel sounds, No tenderness, No mass Back Exam: normal inspection, normal range of motion, No CVA tenderness, No vertebral tenderness Extremity Exam: normal inspection, normal range of motion, pelvis stable Neurologic Exam: alert, oriented x 3, cooperative, normal mood/affect, nml cerebellar function, nml station & gait, sensation nml, No motor deficits Skin Exam: normal color, warm, dry, No rash Lymphatic Exam: No adenopathy SpO2 Interpretation: normal SpO2: 95 O2 Delivery: Room Air - Course Nursing assessment & vital signs reviewed: Yes - CT Exams Head CT Interpretation: Tele-radiologist Report (Right parietal approach CLINICAL CYTOGENETICIST SCIENTIST shunt the ventricles are smaller than on prior study. There is mild prominence of the CSF space around the cerebral hemispheres. Chronic hematomas.) Ordered Tests: Active Orders 24 hr Category Date Time Status Fowl Blood Tester STAT Care 02/10/22 22:16 Active EKG-ER Only STAT Care 02/10/22 22:15 Active IV Insertion STAT Care 02/10/22 22:15 Active POCT Glucose Check STAT Care 02/10/22 22:20 Active Pulse Oximetry (ED) STAT Care 02/10/22 22:15 Active HEAD WITHOUT CONTRAST [CT] Stat Exams 02/10/22 22:09 Taken CBC W DIFF Stat Lab 02/10/22 22:20 Completed CMP Stat Lab 02/10/22 22:20 Completed CULTURE,URINE Stat Lab 02/11/22 00:17 Received NT PRO BNP Stat Lab 02/10/22 22:20 Completed POCT GLUCOSE Stat Lab 02/10/22 22:18 Completed TROPONIN Q4H Lab 02/10/22 22:20 Completed TROPONIN Q4H Lab 02/11/22 02:38 Received TROPONIN Q4H Lab 02/11/22 06:15 Ordered UA W/RFX CULTURE Stat Lab 02/11/22 00:17 Completed Transfer Order Routine Transfer 02/11/22 Ordered Medication Summary Generic Name Dose Route Start Last Admin Trade Name Freq PRN Reason Stop Dose Admin Sodium Chloride 1,000 mls @ 75 mls/hr 02/10/22 22:15 02/10/22 22:28 Sodium Chloride 0.9% 1000 Ml IV 03/12/22 22:14 75 mls/hr .[id number] LEILA Administration Discontinued Medications Generic Name Dose Route Start Last Admin Trade Name Chas PRN Reason Stop Dose Admin Meclizine HCl 25 mg 02/10/22 22:42 02/10/22 23:14 Meclizine Hcl 25 Mg Tablet PO 02/10/22 22:43 25 mg STAT ONE Administration Meclizine HCl Confirm 02/10/22 23:09 Meclizine Hcl 25 Mg Tablet Administered 02/10/22 23:10 Dose 25 mg .ROUTE .STK-MED ONE Meclizine HCl Confirm 02/10/22 23:20 Meclizine Hcl 25 Mg Tablet Administered 02/10/22 23:21 Dose 25 mg .ROUTE .STK-MED ONE Lab/Rad Data: Laboratory Result Diagrams 02/10/22 22:20 02/10/22 22:20 Laboratory Results 02/11/22 02/11/22 02/10/22 Range/Units 02:38 00:17 22:40 WBC (4.0-10.5) x10^3/uL RBC (4.1-5.4) x10^6/uL Hgb (12.0-16.0) g/dL Hct (35-47) % MCV (78-100) fL MCH (26-32) pg MCHC (32-36) g/dL RDW (11.5-14.0) % Plt Count (150-450) x10^3/uL MPV (7.5-11.0) fL Gran % (36.0-66.0) % Immature Gran % (Auto) (0.00-0.4) % Nucleat RBC Rel Count (0.00-0.1) % Eos # (Auto) (0-0.5) x10^3/uL Immature Gran # (Auto) (0.00-0.03) x10^3u/L Absolute Lymphs (auto) (1.0-4.6) x10^3/uL Absolute Monos (auto) (0.0-1.3) x10^3/uL Absolute Nucleated RBC (0.00-0.01) x10^3u/L Lymphocytes % (24.0-44.0) % Monocytes % (0.0-12.0) % Eosinophils % (0.00-5.0) % Basophils % (0.0-0.4) % Absolute Granulocytes (1.4-6.9) x10^3/uL Basophils # (0-0.4) x10^3/uL Sodium (137-145) mmol/L Potassium (3.5-5.1) mmol/L Chloride (98-107) mmol/L Carbon Dioxide (22-30) mmol/L Anion Gap (5-15) MEQ/L BUN (7-17) mg/dL Creatinine (0.52-1.04) mg/dL Estimated GFR ML/MIN Glucose (74-106) mg/dL POC Glucometer (74 to 106) mg/dL Calcium (8.4-10.2) mg/dL Total Bilirubin (0.2-1.3) mg/dL AST (14-36) U/L ALT (0-35) U/L Alkaline Phosphatase (38-126) U/L Troponin I 0.020 (0.000-0.034) ng/mL NT-Pro-B Natriuret Pep (0-1800) pg/mL Serum Total Protein (6.3-8.2) g/dL Albumin (3.5-5.0) g/dL Urinalys Dipstick Clnc MAIN LAB Urine Color YELLOW (YELLOW) Urine Appearance CLEAR (CLEAR) Urine pH 6.0 (5-6) Ur Specific [place]ott 1.010 (1.005-1.025) POC Urine Protein Conf 100 (Negative) Urine Ketones NEGATIVE (NEGATIVE) Urine Nitrite NEGATIVE (NEGATIVE) Urine Bilirubin NEGATIVE (NEGATIVE) Urine Urobilinogen 0.2 (0-1) mg/dL Urine Leukocytes NEGATIVE (NEGATIVE) Urine WBC (Auto) 3-5 (0-5) /HPF Urine RBC (Auto) NONE (0-2) /HPF U Epithel Cells (Auto) NONE (FEW) /HPF Urine Bacteria (Auto) NONE (NEGATIVE) /HPF Urine RBC NEGATIVE (0-5) Lionel/ul Urine Mucus (Auto) SLIGHT (NEGATIVE) /HPF Ur Culture Indicated? YES Urine Glucose NEGATIVE (NEGATIVE) mg/dL Influenza Type A Ag NEGATIVE (NEGATIVE) Influenza Type B Ag NEGATIVE (NEGATIVE) RSV (PCR) NEGATIVE (Negative) SARS-CoV-2 (PCR) NEGATIVE (NEGATIVE) 02/10/22 02/10/22 02/10/22 Range/Units 22:20 22:20 22:20 WBC 5.0 (4.0-10.5) x10^3/uL RBC 3.79 L (4.1-5.4) x10^6/uL Hgb 11.8 L (12.0-16.0) g/dL Hct 36.5 (35-47) % MCV 96.3 (78-100) fL MCH 31.1 (26-32) pg MCHC 32.3 (32-36) g/dL RDW 14.4 H (11.5-14.0) % Plt Count 166 (150-450) x10^3/uL MPV 10.8 (7.5-11.0) fL Gran % 53.7 (36.0-66.0) % Immature Gran % (Auto) 0.2 (0.00-0.4) % Nucleat RBC Rel Count 0.0 (0.00-0.1) % Eos # (Auto) 0.18 (0-0.5) x10^3/uL Immature Gran # (Auto) 0.01 (0.00-0.03) x10^3u/L Absolute Lymphs (auto) 1.75 (1.0-4.6) x10^3/uL Absolute Monos (auto) 0.32 (0.0-1.3) x10^3/uL Absolute Nucleated RBC 0.00 (0.00-0.01) x10^3u/L Lymphocytes % 35.4 (24.0-44.0) % Monocytes % 6.5 (0.0-12.0) % Eosinophils % 3.6 (0.00-5.0) % Basophils % 0.6 (0.0-0.4) % Absolute Granulocytes 2.66 (1.4-6.9) x10^3/uL Basophils # 0.03 (0-0.4) x10^3/uL Sodium 139 (137-145) mmol/L Potassium 3.8 (3.5-5.1) mmol/L Chloride 106 (98-107) mmol/L Carbon Dioxide 27 (22-30) mmol/L Anion Gap 10.7 (5-15) MEQ/L BUN 21 H (7-17) mg/dL Creatinine 0.82 (0.52-1.04) mg/dL Estimated GFR > 60.0 ML/MIN Glucose 156 H (74-106) mg/dL POC Glucometer (74 to 106) mg/dL Calcium 8.8 (8.4-10.2) mg/dL Total Bilirubin 0.50 (0.2-1.3) mg/dL AST 56 H (14-36) U/L ALT 33 (0-35) U/L Alkaline Phosphatase 62 (38-126) U/L Troponin I < 0.012 (0.000-0.034) ng/mL NT-Pro-B Natriuret Pep 367 (0-1800) pg/mL Serum Total Protein 8.3 H (6.3-8.2) g/dL Albumin 4.2 (3.5-5.0) g/dL Urinalys Dipstick Clnc Urine Color (YELLOW) Urine Appearance (CLEAR) Urine pH (5-6) Ur Specific Cadott (1.005-1.025) POC Urine Protein Conf (Negative) Urine Ketones (NEGATIVE) Urine Nitrite (NEGATIVE) Urine Bilirubin (NEGATIVE) Urine Urobilinogen (0-1) mg/dL Urine Leukocytes (NEGATIVE) Urine WBC (Auto) (0-5) /HPF Urine RBC (Auto) (0-2) /HPF U Epithel Cells (Auto) (FEW) /HPF Urine Bacteria (Auto) (NEGATIVE) /HPF Urine RBC (0-5) Lionel/ul Urine Mucus (Auto) (NEGATIVE) /HPF Ur Culture Indicated? Urine Glucose (NEGATIVE) mg/dL Influenza Type A Ag (NEGATIVE) Influenza Type B Ag (NEGATIVE) RSV (PCR) (Negative) SARS-CoV-2 (PCR) (NEGATIVE) 02/10/22 Range/Units 22:18 WBC (4.0-10.5) x10^3/uL RBC (4.1-5.4) x10^6/uL Hgb (12.0-16.0) g/dL Hct (35-47) % MCV (78-100) fL MCH (26-32) pg MCHC (32-36) g/dL RDW (11.5-14.0) % Plt Count (150-450) x10^3/uL MPV (7.5-11.0) fL Gran % (36.0-66.0) % Immature Gran % (Auto) (0.00-0.4) % Nucleat RBC Rel Count (0.00-0.1) % Eos # (Auto) (0-0.5) x10^3/uL Immature Gran # (Auto) (0.00-0.03) x10^3u/L Absolute Lymphs (auto) (1.0-4.6) x10^3/uL Absolute Monos (auto) (0.0-1.3) x10^3/uL Absolute Nucleated RBC (0.00-0.01) x10^3u/L Lymphocytes % (24.0-44.0) % Monocytes % (0.0-12.0) % Eosinophils % (0.00-5.0) % Basophils % (0.0-0.4) % Absolute Granulocytes (1.4-6.9) x10^3/uL Basophils # (0-0.4) x10^3/uL Sodium (137-145) mmol/L Potassium (3.5-5.1) mmol/L Chloride (98-107) mmol/L Carbon Dioxide (22-30) mmol/L Anion Gap (5-15) MEQ/L BUN (7-17) mg/dL Creatinine (0.52-1.04) mg/dL Estimated GFR ML/MIN Glucose (74-106) mg/dL POC Glucometer 151 H (74 to 106) mg/dL Calcium (8.4-10.2) mg/dL Total Bilirubin (0.2-1.3) mg/dL AST (14-36) U/L ALT (0-35) U/L Alkaline Phosphatase (38-126) U/L Troponin I (0.000-0.034) ng/mL NT-Pro-B Natriuret Pep (0-1800) pg/mL Serum Total Protein (6.3-8.2) g/dL Albumin (3.5-5.0) g/dL Urinalys Dipstick Clnc Urine Color (YELLOW) Urine Appearance (CLEAR) Urine pH (5-6) Ur Specific Cadott (1.005-1.025) POC Urine Protein Conf (Negative) Urine Ketones (NEGATIVE) Urine Nitrite (NEGATIVE) Urine Bilirubin (NEGATIVE) Urine Urobilinogen (0-1) mg/dL Urine Leukocytes (NEGATIVE) Urine WBC (Auto) (0-5) /HPF Urine RBC (Auto) (0-2) /HPF U Epithel Cells (Auto) (FEW) /HPF Urine Bacteria (Auto) (NEGATIVE) /HPF Urine RBC (0-5) Lionel/ul Urine Mucus (Auto) (NEGATIVE) /HPF Ur Culture Indicated? Urine Glucose (NEGATIVE) mg/dL Influenza Type A Ag (NEGATIVE) Influenza Type B Ag (NEGATIVE) RSV (PCR) (Negative) SARS-CoV-2 (PCR) (NEGATIVE) - Progress Progress: improved Progress Note: Patient evaluated by telemetry neuro. Telemetry neuro advised transfer to a facility with neurosurgery. We spoke to neurosurgeon Dr. Meza () as well as [place]). They reviewed the CT head and both agreed that there is no neurosurgical issue to be dealt with at this time. So they both declined transfer on a neurosurgical standpoint. Spoke to Dr. Devries hospitalist at [facility] who accepts transfer. However there would be a 3 to 5-day wait. Case discussed with Dr. Thibodeaux. Since there is no neurosurgical issue according to the neurosurgeons Dr. Thibodeaux accepts admission for further evaluation of hypertensive urgency as well as dizziness. Patient's laboratory work-up essentially nonremarkable. Analysis negative. Patient's blood pressure gradually decreased down to its baseline of 180 systolic. This improvement in blood pressure was likely due to patient's home medication/blood pressure medication that she took prior to arrival to our ED today. Plan of care discussed with patient. She agrees to admission at [facility] for further evaluation and treatment. Portions of this note were created with voice recognition technology. There may be grammatical, spelling, punctuation or sound alike errors 02/11/22 02:50 Patient took an aspirin prior to arrival. 02/11/22 03:[address] Jesse Fowler Will see patient in: hospital (observation) Counseled pt/family regarding: lab results, diagnosis, rad results - Departure Departure Disposition: Observation Clinical Impression: Hypertensive urgency, Dizziness, Unsteady gait Condition: Stable Critical Care Time: No Referrals: MOSER,MATILDA CINDI [Primary Care Provider] - Follow up/PCP as directed
[2022-02-11] MEDS ORDERED: TYLENOL 325 MG PO PRN (03:22)
[2022-02-11] MEDS ORDERED: Senokot-S Tablet PO PRN (03:22)
[2022-02-11] MEDS ORDERED: MILK OF MAGNESIA 30 ML PO PRN (03:22)
[2022-02-11] MEDS ORDERED: Zofran 4 MG/2 ML VIAL IV PRN (03:22)
[2022-02-11] MEDS ORDERED: MAALOX ES 30 ML UNIT DOSE PO PRN (03:22)
[2022-02-11] MEDS: Sodium Chloride 0.9% 1000 ML 1,000 ML IV SCH ×2 (04:25→17:50)
[2022-02-11] MEDS: Coreg PO SCH ×2 (06:54→21:09)
[2022-02-11 07:38] LABS: Risk Ratio 4.1
[2022-02-11] MEDS ORDERED: APRESOLINE 20 MG/ML INJ IV ONE (08:37)
--- NOTE | 2022-02-11 08:50 | XRAY ---
Indication: Dizziness. High blood pressure. Stroke. Multiple contiguous axial images obtained through the head without contrast. Comparison: September 16, 2016 Again age-appropriate global atrophy, mild/moderate periventricular degenerative micro-ischemia bilaterally, and prominent ventricular system with right occipital ventricular shunt catheter tip in left frontal horn. No acute intracranial hemorrhage, abnormal extra-axial fluid collection, or mass effect. Fourth ventricle is midline. Bony calvarium intact. 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 Visualized paranasal sinuses and mastoid air cells are clear. 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 Also stable left extraocular mass. Comment: Preliminary interpretation made by [facility]. No critical discrepancy.
[2022-02-11] MEDS ORDERED: FLUZONE HIGH-DOSE QUAD 2022-23 IM ONE (10:00)
[2022-02-11] MEDS: ECOTRIN 81 MG PO SCH (14:39)
[2022-02-11] MEDS: ENOXAPARIN SODIUM SQ SCH (14:39)
--- NOTE | 2022-02-11 17:14 | PCM.HP ---
History of Present Illness - Chief Complaint Chief Complaint: Dizziness, hypertensive urgency History of Present Illness: is a 81 year old female pt of Dr. Owens with hypertension, hx DVT and PE, Hs breast ca (1998), Hx renal carcinoma (with nephrectomy - 2016), Hx melanoma (2018), hx subdural hematoma, PAPER PLATE MACHINE TENDER shunt placed 1996 (last checked 2015), DM II, GERD, and chronic hypoxemic respiratory failure (wears 2L O2 at night, and occasionally during the day). She was admitted through ER with Hypertensive urgency and dizziness. Pt started feeling the room spin (horizontally) at 8:30 pm last night. It stopped, then restarted. She was just sitting using her iPad when it began. She also had a short episode of the same three days ago and just went to bed. The teleneurologist was concerned with the CT reaading (virtual - ventricles smaller, R parietal PAPER PLATE MACHINE TENDER shunt, chronic hematomas) and wanted her to be evaluated by neurosurgery. She was accepted at an outside hospital, but they said no beds were available for 3-[address] March spoke with 2 neurosurgeons who both said this was not an emergent issue, so we decided to admit the pt here to control her BP and await a bed. Her systolic BP was 236 initially. Was 204/86 at 0800 today. Pt was able to walk at home. No vomiting. About 27 years ago, she had vertigo that was vertical, "like a slot machine," and was found to have hydrocephalus and had the PAPER PLATE MACHINE TENDER shunt placed (by Dr. Yohannes Meehan in [place]). Pt had Covid in November 2021. - Review of Systems Respiratory: Short Of Breath (chronic) Cardiac: Edema (some, RLE, since melanoma) Neurological: Dizziness Medications & Allergies Home Medications: Home Medication List Ascorbate Calcium [Vitamin C] 500 mg PO BID 10/01/15 [History Confirmed 02/10/22] Pravastatin Sodium [Pravachol] 80 mg PO QHS 05/21/17 [History Confirmed 02/10/22] Carvedilol [Coreg ] 6.25 mg PO BID #60 tablet 05/24/17 [Rx Confirmed 02/10/22] Ascorbic Acid 500 mg [Vitamin C 500 MG] 500 mg PO BID 02/11/22 [History Confirmed 02/11/22] Aspirin 81 gm Chew [Baby Aspirin 81 mg Chew] 81 mg PO DAILY 02/11/22 [History Confirmed 02/11/22] Calcium Carbonate [Calcium] 1,200 mg PO DAILY 02/11/22 [History Confirmed 02/11/22] Cholecalciferol (Vitamin D3) [Vitamin D3] 25 mcg PO DAILY 02/11/22 [History Confirmed 02/11/22] Cyanocobalamin (Vitamin B-12) [Vitamin B-12] 1,000 mcg PO DAILY 02/11/22 [History Confirmed 02/11/22] Ezetimibe 10 mg [Zetia 10 MG] 10 mg PO DAILY 02/11/22 [History Confirmed 02/11/22] [place]-3 Fatty Acids/Fish Oil [Fish Oil 1,000 mg Capsule] 1,000 mg PO BID 02/11/22 [History Confirmed 02/11/22] Allergies/Adverse Reactions: Allergies Allergy/AdvReac Type Severity Reaction Status Date / Time cefaclor [From [facility]] Allergy Intermediate Rash Verified 02/10/22 23:28 - Past Medical History Past Medical History: Yes Neurological History: TIA, Other ENT History: Cataracts Cardiac History: High Cholesterol, Hypertension Respiratory History: COPD Endocrine Medical History: Diabetes Type II Musculoskelatal History: Arthritis GI Medical History: GERD History: Kidney Cancer, Renal Disease Pyscho-Social History: No Pertinent History Reproductive Disorders: Breast Cancer Comment: Shunt placed 1996, unsure of location of brain. melanoma. Kidney cancer and removal 2016. 2L O2 at night via [place] - Female History Are you now?: No - Past Surgical History Past Surgical History: Yes Neuro Surgical History: Brain Shunt Cardiac History: No Pertinent History Respiratory Surgery: No Pertinent History GI Surgical History: No Pertinent History Genitourinary Surgical Hx: Kidney Surgery Musculskeletal Surgical Hx: No Pertinent History Female Surgical History: Hysterectomy, Lumpectomy Other Surgical History: BREAST CA, WITH LUMPECTOMY AND CHIP PLACEMENT,. BUNION SURGERY, CATARACT SURGERY WITH CORRECTIVE LENS IMPLANTS BILATERALLY, Right nephrectomy 04/28/17 - Social History Smoking Status: Never smoker Exposure to second hand smoke: Yes (for years) Alcohol: None Drug Use: none - Physical Exam Vital Signs: Vital Signs - 24 hr Temp Pulse Resp BP Pulse Ox 02/11/22 16:00 98.9 F 64 21 197/74 94 L 02/11/22 11:18 97.6 F 60 15 195/81 95 02/11/22 08:23 94 L 02/11/22 07:23 97.7 F 57 L 15 204/86 94 L 02/11/22 03:51 97.9 F 77 20 179/78 93 L 02/11/22 03:09 95 02/11/22 01:30 61 18 184/82 95 02/11/22 00:15 63 18 180/86 93 L 02/10/22 23:09 64 16 200/82 97 02/10/22 22:38 67 16 226/88 98 02/10/22 22:25 95 02/10/22 21:55 97.8 F 65 16 236/85 96 General Appearance: no apparent distress, alert Neurologic Exam: oriented x 3, cooperative, 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 (normal aside from CN VIII decreased bilat, L>R.), other (no dysdiadochokinesia), No motor deficits, No motor weakness Eye Exam: eyes nml inspection Ears, Nose, Throat Exam: moist mucous membranes Neck Exam: normal inspection, non-tender, supple, No lymphadenopathy, No thyromegaly Respiratory Exam: normal breath sounds, lungs clear, No crackles/rales, No rhonchi, No wheezing Cardiovascular Exam: regular rate/rhythm, normal heart sounds, No murmur Gastrointestinal/Abdomen Exam: soft, normal bowel sounds, No tenderness, No distention, No mass, No guarding, No rebound Back Exam: No CVA tenderness Extremity Exam: normal inspection, No pedal edema, No swelling Skin Exam: normal color, warm, dry, No rash Results - Labs Lab/Micro Results: Lab Results-Last 24 Hours 02/10/22 02/10/22 02/10/22 Range/Units 22:18 22:20 22:20 WBC 5.0 (4.0-10.5) x10^3/uL RBC 3.79 L (4.1-5.4) x10^6/uL Hgb 11.8 L (12.0-16.0) g/dL Hct 36.5 (35-47) % MCV 96.3 (78-100) fL MCH 31.1 (26-32) pg MCHC 32.3 (32-36) g/dL RDW 14.4 H (11.5-14.0) % Plt Count 166 (150-450) x10^3/uL MPV 10.8 (7.5-11.0) fL Gran % 53.7 (36.0-66.0) % Immature Gran % (Auto) 0.2 (0.00-0.4) % Nucleat RBC Rel Count 0.0 (0.00-0.1) % Eos # (Auto) 0.18 (0-0.5) x10^3/uL Immature Gran # (Auto) 0.01 (0.00-0.03) x10^3u/L Absolute Lymphs (auto) 1.75 (1.0-4.6) x10^3/uL Absolute Monos (auto) 0.32 (0.0-1.3) x10^3/uL Absolute Nucleated RBC 0.00 (0.00-0.01) x10^3u/L Lymphocytes % 35.4 (24.0-44.0) % Monocytes % 6.5 (0.0-12.0) % Eosinophils % 3.6 (0.00-5.0) % Basophils % 0.6 (0.0-0.4) % Absolute Granulocytes 2.66 (1.4-6.9) x10^3/uL Basophils # 0.03 (0-0.4) x10^3/uL Sodium (137-145) mmol/L Potassium (3.5-5.1) mmol/L Chloride (98-107) mmol/L Carbon Dioxide (22-30) mmol/L Anion Gap (5-15) MEQ/L BUN (7-17) mg/dL Creatinine (0.52-1.04) mg/dL Estimated GFR ML/MIN Glucose (74-106) mg/dL POC Glucometer 151 H (74 to 106) mg/dL Calcium (8.4-10.2) mg/dL Total Bilirubin (0.2-1.3) mg/dL AST (14-36) U/L ALT (0-35) U/L Alkaline Phosphatase (38-126) U/L Troponin I < 0.012 (0.000-0.034) ng/mL NT-Pro-B Natriuret Pep (0-1800) pg/mL Serum Total Protein (6.3-8.2) g/dL Albumin (3.5-5.0) g/dL Triglycerides (30-150) mg/dL Cholesterol (50-200) mg/dL LDL Cholesterol (30-100) mg/dL HDL Cholesterol (40-60) mg/dL Heart Disease Risk Ratio Urinalys Dipstick Clnc Urine Color (YELLOW) Urine Appearance (CLEAR) Urine pH (5-6) Ur Specific [place] (1.005-1.025) POC Urine Protein Conf (Negative) Urine Ketones (NEGATIVE) Urine Nitrite (NEGATIVE) Urine Bilirubin (NEGATIVE) Urine Urobilinogen (0-1) mg/dL Urine Leukocytes (NEGATIVE) Urine WBC (Auto) (0-5) /HPF Urine RBC (Auto) (0-2) /HPF U Epithel Cells (Auto) (FEW) /HPF Urine Bacteria (Auto) (NEGATIVE) /HPF Urine RBC (0-5) Lionel/ul Urine Mucus (Auto) (NEGATIVE) /HPF Ur Culture Indicated? Urine Glucose (NEGATIVE) mg/dL Influenza Type A Ag (NEGATIVE) Influenza Type B Ag (NEGATIVE) RSV (PCR) (Negative) SARS-CoV-2 (PCR) (NEGATIVE) 02/10/22 02/10/22 02/11/22 Range/Units 22:20 22:40 00:17 WBC (4.0-10.5) x10^3/uL RBC (4.1-5.4) x10^6/uL Hgb (12.0-16.0) g/dL Hct (35-47) % MCV (78-100) fL MCH (26-32) pg MCHC (32-36) g/dL RDW (11.5-14.0) % Plt Count (150-450) x10^3/uL MPV (7.5-11.0) fL Gran % (36.0-66.0) % Immature Gran % (Auto) (0.00-0.4) % Nucleat RBC Rel Count (0.00-0.1) % Eos # (Auto) (0-0.5) x10^3/uL Immature Gran # (Auto) (0.00-0.03) x10^3u/L Absolute Lymphs (auto) (1.0-4.6) x10^3/uL Absolute Monos (auto) (0.0-1.3) x10^3/uL Absolute Nucleated RBC (0.00-0.01) x10^3u/L Lymphocytes % (24.0-44.0) % Monocytes % (0.0-12.0) % Eosinophils % (0.00-5.0) % Basophils % (0.0-0.4) % Absolute Granulocytes (1.4-6.9) x10^3/uL Basophils # (0-0.4) x10^3/uL Sodium 139 (137-145) mmol/L Potassium 3.8 (3.5-5.1) mmol/L Chloride 106 (98-107) mmol/L Carbon Dioxide 27 (22-30) mmol/L Anion Gap 10.7 (5-15) MEQ/L BUN 21 H (7-17) mg/dL Creatinine 0.82 (0.52-1.04) mg/dL Estimated GFR > 60.0 ML/MIN Glucose 156 H (74-106) mg/dL POC Glucometer (74 to 106) mg/dL Calcium 8.8 (8.4-10.2) mg/dL Total Bilirubin 0.50 (0.2-1.3) mg/dL AST 56 H (14-36) U/L ALT 33 (0-35) U/L Alkaline Phosphatase 62 (38-126) U/L Troponin I (0.000-0.034) ng/mL NT-Pro-B Natriuret Pep 367 (0-1800) pg/mL Serum Total Protein 8.3 H (6.3-8.2) g/dL Albumin 4.2 (3.5-5.0) g/dL Triglycerides (30-150) mg/dL Cholesterol (50-200) mg/dL LDL Cholesterol (30-100) mg/dL HDL Cholesterol (40-60) mg/dL Heart Disease Risk Ratio Urinalys Dipstick Clnc MAIN LAB Urine Color YELLOW (YELLOW) Urine Appearance CLEAR (CLEAR) Urine pH 6.0 (5-6) Ur Specific [place] 1.010 (1.005-1.025) POC Urine Protein Conf 100 (Negative) Urine Ketones NEGATIVE (NEGATIVE) Urine Nitrite NEGATIVE (NEGATIVE) Urine Bilirubin NEGATIVE (NEGATIVE) Urine Urobilinogen 0.2 (0-1) mg/dL Urine Leukocytes NEGATIVE (NEGATIVE) Urine WBC (Auto) 3-5 (0-5) /HPF Urine RBC (Auto) NONE (0-2) /HPF U Epithel Cells (Auto) NONE (FEW) /HPF Urine Bacteria (Auto) NONE (NEGATIVE) /HPF Urine RBC NEGATIVE (0-5) Lionel/ul Urine Mucus (Auto) SLIGHT (NEGATIVE) /HPF Ur Culture Indicated? YES Urine Glucose NEGATIVE (NEGATIVE) mg/dL Influenza Type A Ag NEGATIVE (NEGATIVE) Influenza Type B Ag NEGATIVE (NEGATIVE) RSV (PCR) NEGATIVE (Negative) SARS-CoV-2 (PCR) NEGATIVE (NEGATIVE) 02/11/22 02/11/22 02/11/22 Range/Units 02:38 06:45 06:45 WBC (4.0-10.5) x10^3/uL RBC (4.1-5.4) x10^6/uL Hgb (12.0-16.0) g/dL Hct (35-47) % MCV (78-100) fL MCH (26-32) pg MCHC (32-36) g/dL RDW (11.5-14.0) % Plt Count (150-450) x10^3/uL MPV (7.5-11.0) fL Gran % (36.0-66.0) % Immature Gran % (Auto) (0.00-0.4) % Nucleat RBC Rel Count (0.00-0.1) % Eos # (Auto) (0-0.5) x10^3/uL Immature Gran # (Auto) (0.00-0.03) x10^3u/L Absolute Lymphs (auto) (1.0-4.6) x10^3/uL Absolute Monos (auto) (0.0-1.3) x10^3/uL Absolute Nucleated RBC (0.00-0.01) x10^3u/L Lymphocytes % (24.0-44.0) % Monocytes % (0.0-12.0) % Eosinophils % (0.00-5.0) % Basophils % (0.0-0.4) % Absolute Granulocytes (1.4-6.9) x10^3/uL Basophils # (0-0.4) x10^3/uL Sodium (137-145) mmol/L Potassium (3.5-5.1) mmol/L Chloride (98-107) mmol/L Carbon Dioxide (22-30) mmol/L Anion Gap (5-15) MEQ/L BUN (7-17) mg/dL Creatinine (0.52-1.04) mg/dL Estimated GFR ML/MIN Glucose (74-106) mg/dL POC Glucometer (74 to 106) mg/dL Calcium (8.4-10.2) mg/dL Total Bilirubin (0.2-1.3) mg/dL AST (14-36) U/L ALT (0-35) U/L Alkaline Phosphatase (38-126) U/L Troponin I 0.020 0.019 (0.000-0.034) ng/mL NT-Pro-B Natriuret Pep (0-1800) pg/mL Serum Total Protein (6.3-8.2) g/dL Albumin (3.5-5.0) g/dL Triglycerides 180 H (30-150) mg/dL Cholesterol 140 (50-200) mg/dL LDL Cholesterol 75 (30-100) mg/dL HDL Cholesterol 34 L (40-60) mg/dL Heart Disease Risk Ratio 4.1 Urinalys Dipstick Clnc Urine Color (YELLOW) Urine Appearance (CLEAR) Urine pH (5-6) Ur Specific [place] (1.005-1.025) POC Urine Protein Conf (Negative) Urine Ketones (NEGATIVE) Urine Nitrite (NEGATIVE) Urine Bilirubin (NEGATIVE) Urine Urobilinogen (0-1) mg/dL Urine Leukocytes (NEGATIVE) Urine WBC (Auto) (0-5) /HPF Urine RBC (Auto) (0-2) /HPF U Epithel Cells (Auto) (FEW) /HPF Urine Bacteria (Auto) (NEGATIVE) /HPF Urine RBC (0-5) Lionel/ul Urine Mucus (Auto) (NEGATIVE) /HPF Ur Culture Indicated? Urine Glucose (NEGATIVE) mg/dL Influenza Type A Ag (NEGATIVE) Influenza Type B Ag (NEGATIVE) RSV (PCR) (Negative) SARS-CoV-2 (PCR) (NEGATIVE) 02/11/22 02/11/22 02/11/22 Range/Units 07:08 11:02 16:21 WBC (4.0-10.5) x10^3/uL RBC (4.1-5.4) x10^6/uL Hgb (12.0-16.0) g/dL Hct (35-47) % MCV (78-100) fL MCH (26-32) pg MCHC (32-36) g/dL RDW (11.5-14.0) % Plt Count (150-450) x10^3/uL MPV (7.5-11.0) fL Gran % (36.0-66.0) % Immature Gran % (Auto) (0.00-0.4) % Nucleat RBC Rel Count (0.00-0.1) % Eos # (Auto) (0-0.5) x10^3/uL Immature Gran # (Auto) (0.00-0.03) x10^3u/L Absolute Lymphs (auto) (1.0-4.6) x10^3/uL Absolute Monos (auto) (0.0-1.3) x10^3/uL Absolute Nucleated RBC (0.00-0.01) x10^3u/L Lymphocytes % (24.0-44.0) % Monocytes % (0.0-12.0) % Eosinophils % (0.00-5.0) % Basophils % (0.0-0.4) % Absolute Granulocytes (1.4-6.9) x10^3/uL Basophils # (0-0.4) x10^3/uL Sodium (137-145) mmol/L Potassium (3.5-5.1) mmol/L Chloride (98-107) mmol/L Carbon Dioxide (22-30) mmol/L Anion Gap (5-15) MEQ/L BUN (7-17) mg/dL Creatinine (0.52-1.04) mg/dL Estimated GFR ML/MIN Glucose (74-106) mg/dL POC Glucometer 118 H 122 H 139 H (74 to 106) mg/dL Calcium (8.4-10.2) mg/dL Total Bilirubin (0.2-1.3) mg/dL AST (14-36) U/L ALT (0-35) U/L Alkaline Phosphatase (38-126) U/L Troponin I (0.000-0.034) ng/mL NT-Pro-B Natriuret Pep (0-1800) pg/mL Serum Total Protein (6.3-8.2) g/dL Albumin (3.5-5.0) g/dL Triglycerides (30-150) mg/dL Cholesterol (50-200) mg/dL LDL Cholesterol (30-100) mg/dL HDL Cholesterol (40-60) mg/dL Heart Disease Risk Ratio Urinalys Dipstick Clnc Urine Color (YELLOW) Urine Appearance (CLEAR) Urine pH (5-6) Ur Specific [place] (1.005-1.025) POC Urine Protein Conf (Negative) Urine Ketones (NEGATIVE) Urine Nitrite (NEGATIVE) Urine Bilirubin (NEGATIVE) Urine Urobilinogen (0-1) mg/dL Urine Leukocytes (NEGATIVE) Urine WBC (Auto) (0-5) /HPF Urine RBC (Auto) (0-2) /HPF U Epithel Cells (Auto) (FEW) /HPF Urine Bacteria (Auto) (NEGATIVE) /HPF Urine RBC (0-5) Lionel/ul Urine Mucus (Auto) (NEGATIVE) /HPF Ur Culture Indicated? Urine Glucose (NEGATIVE) mg/dL Influenza Type A Ag (NEGATIVE) Influenza Type B Ag (NEGATIVE) RSV (PCR) (Negative) SARS-CoV-2 (PCR) (NEGATIVE) Accuchecks Date 02/10/22 Time 22:15 - Radiology Impressions Radiology Exams & Impressions: Radiology Procedures Category Date Time Status HEAD WITHOUT CONTRAST [CT] Stat Exams 02/10/22 22:09 Completed - Other Procedures and Tests Respiratory Therapy 02/11/22 06:15 EKG ROUTINE 02/11/22 08:23 Oxygen Nasal Cannula 2 lpm 02/12/22 05:00 EKG DAILY 02/13/22 05:00 EKG DAILY 02/14/22 05:00 EKG DAILY Assessment/Plan (1) Dizziness Current Visit: Yes Status: Acute Assessment & Plan: Resolved. After her admission, ER doctor spoke with [facility], pt is still on the list for transfer; I discussed with pt. Agree should go be evaluated by neuro before discharge to home. Code(s): R42 - DIZZINESS AND GIDDINESS (2) Hypertensive urgency Current Visit: Yes Status: Acute Assessment & Plan: hydralazine given IV - will add prn Code(s): I16.0 - HYPERTENSIVE URGENCY
[2022-02-11] MEDS: APRESOLINE 20 MG/ML INJ IV PRN (18:52)
[2022-02-11] MEDS ORDERED: NORVASC 5 MG PO PRN (18:58)
[2022-02-11] MEDS: ZOCOR 20MG PO SCH (21:08)
[2022-02-11] MEDS ORDERED: NON-FORMULARY ITEM (Pravastatin Sodium [Pravachol] 40 MG Tablet) PO SCH (22:00)
[2022-02-12] MEDS: Sodium Chloride 0.9% 1000 ML 1,000 ML IV SCH ×2 (06:18→20:03)
[2022-02-12 07:14] LABS: BLOOD UREA NITROGEN 20 mg/dL (7-17); CHLORIDE 106 mmol/L (98-107); Calcium 8.3 mg/dL (8.4-10.2); Carbon Dioxide 28 mmol/L (22-30); Creatinine 1 0.93 mg/dL (0.52-1.04); EST GLOMERULAR FILTRATION RATE > 60.0 ML/MIN; Glucose 134 mg/dL (74-106); Potassium 3.8 mmol/L (3.5-5.1); SODIUM 139 mmol/L (137-145)
[2022-02-12] MEDS: ECOTRIN 81 MG PO SCH (07:29)
[2022-02-12] MEDS: Coreg PO SCH ×2 (07:29→20:03)
[2022-02-12] MEDS: ENOXAPARIN SODIUM SQ SCH (07:29)
[2022-02-12 07:59] LABS: Hematocrit 36.3 % (35-47); Hemoglobin 11.3 g/dL (12.0-16.0); Mean Cell Volume 98.4 fL (78-100); Mean Corpuscular Hemoglobin 30.6 pg (26-32); Mean Corpuscular Hgb Concent. 31.1 g/dL (32-36); Mean Platelet Volume 11.2 fL (7.5-11.0); Platelet Count 165 x10^3/uL (150-450); Red Blood Count 3.69 x10^6/uL (4.1-5.4); White Blood Count 5.4 x10^3/uL (4.0-10.5)
--- NOTE | 2022-02-12 08:30 | PCM.NOTE ---
Date and Time: 02/12/22823 Subjective Assessment: Pt is feeling better today than at admission. No more dizziness. Raven po. - Review of Systems Constitutional: No Fever Abdominal/Gastrointestinal: No Vomiting Neurological: No Dizziness Objective Exam General Appearance: no apparent distress, alert Neurologic Exam: oriented x 3, cooperative Skin Exam: normal color, warm, dry, No rash Eye Exam: eyes nml inspection Ears, Nose, Throat Exam: moist mucous membranes Neck Exam: normal inspection Respiratory Exam: normal breath sounds, lungs clear, No crackles/rales, No rhonchi, No wheezing Cardiovascular Exam: regular rate/rhythm, normal heart sounds, No murmur Gastrointestinal/Abdomen Exam: soft, normal bowel sounds, No tenderness, No distention, No mass, No guarding, No rebound Extremity Exam: normal inspection, No pedal edema, No swelling Back Exam: normal inspection, No rash OBJECTIVE DATA Vital Signs: Vital Signs - 24 hr Temp Pulse Resp BP Pulse Ox 02/12/22 07:53 93 L 02/12/22 06:45 97.7 F 68 16 189/78 93 L 02/12/22 03:50 98.0 F 70 20 175/74 94 L 02/11/22 23:47 98.7 F 66 18 146/66 94 L 02/11/22 19:50 94 L 02/11/22 19:31 99.5 F 67 18 146/64 94 L 02/11/22 16:00 98.9 F 64 21 197/74 94 L 02/11/22 11:18 97.6 F 60 15 195/81 95 Pain Assessment - Last Documented Pain Intensity 4 Pain Scale Used 0-10 Pain Scale Intake and Output: Intake & Output 02/09/22 02/10/22 02/11/22 02/12/22 11:59 11:59 11:59 11:59 Intake Total 2173 Output Total 1200 Balance -1200 2173 Weight 104 kg 104.5 kg Lab Results: Lab Results-Last 24 Hours 02/11/22 02/11/22 02/11/22 Range/Units 11:02 16:21 20:24 WBC (4.0-10.5) x10^3/uL RBC (4.1-5.4) x10^6/uL Hgb (12.0-16.0) g/dL Hct (35-47) % MCV (78-100) fL MCH (26-32) pg MCHC (32-36) g/dL RDW (11.5-14.0) % Plt Count (150-450) x10^3/uL MPV (7.5-11.0) fL Sodium (137-145) mmol/L Potassium (3.5-5.1) mmol/L Chloride (98-107) mmol/L Carbon Dioxide (22-30) mmol/L Anion Gap (5-15) MEQ/L BUN (7-17) mg/dL Creatinine (0.52-1.04) mg/dL Estimated GFR ML/MIN Glucose (74-106) mg/dL POC Glucometer 122 H 139 H 109 H (74 to 106) mg/dL Calcium (8.4-10.2) mg/dL 02/12/22 02/12/22 02/12/22 Range/Units 07:00 07:05 07:05 WBC 5.4 (4.0-10.5) x10^3/uL RBC 3.69 L (4.1-5.4) x10^6/uL Hgb 11.3 L (12.0-16.0) g/dL Hct 36.3 (35-47) % MCV 98.4 (78-100) fL MCH 30.6 (26-32) pg MCHC 31.1 L (32-36) g/dL RDW 15.0 H (11.5-14.0) % Plt Count 165 (150-450) x10^3/uL MPV 11.2 H (7.5-11.0) fL Sodium 139 (137-145) mmol/L Potassium 3.8 (3.5-5.1) mmol/L Chloride 106 (98-107) mmol/L Carbon Dioxide 28 (22-30) mmol/L Anion Gap 9.0 (5-15) MEQ/L BUN 20 H (7-17) mg/dL Creatinine 0.93 (0.52-1.04) mg/dL Estimated GFR > 60.0 ML/MIN Glucose 134 H (74-106) mg/dL POC Glucometer 128 H (74 to 106) mg/dL Calcium 8.3 L (8.4-10.2) mg/dL Radiology Exams: Radiology Procedures Category Date Time Status CAROTID BILATERAL [US] Routine Exams 02/12/22 Ordered ECHO W/2D AND DOPPLER [US] Routine Exams 02/12/22 Ordered HEAD WITHOUT CONTRAST [CT] Stat Exams 02/10/22 22:09 Completed MRI BRAIN W/O CONTRAST [MRI] Routine Exams 02/12/22 08:18 Ordered Assessment/Plan (1) Dizziness Current Visit: Yes Status: Acute Assessment & Plan: Concern for MOVIE WRITER shunt malfunction. Teleneuro found ventricules to be enlarged, with worrisome sx recently. Neurosurgery found it not to be acute when discussed w ER doctor, but she does need to have neurology eval before being discharged to home. Pending transfer to [facility] (no bed as yet). Currently no dizziness. Added teleneuro recs including orthostats q shift, checking MRI/echo/carotids/eeg. Added a1c, TSH, B12, SPEP w IPEP, PT/PTT. She is on ASA and lovenox. On statin. Code(s): R42 - DIZZINESS AND GIDDINESS (2) Hypertensive urgency Current Visit: Yes Status: Acute Assessment & Plan: BP were better overnight (140s-170s); goal was to slowly lower BP. 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
[2022-02-12 08:56] LABS: INR 1.09 (0.8-3.0); PROTIME 11.5 SECONDS (9.4-12.5); PTT 27.3 SECONDS (25.1-36.5)
[2022-02-12] MEDS ORDERED: BABY ASPIRIN 81 MG CHEW PO SCH (10:00)
--- NOTE | 2022-02-12 11:34 | XRAY ---
Indication: Dizziness. Two-dimensional sonogram and color Doppler imaging of the carotid arteries of the neck performed. Comparison: December 09, 2016 Examination of the right carotid circulation again demonstrates widely patent common carotid, carotid bulb, and external carotid arteries. Proximal internal carotid artery demonstrates slightly worsened minimal arteriosclerotic plaquing. PSV of the CCA is 119 cm/s. PSV of the ICA is 87 cm/s. ICA/CCA ratio 0.7. Normal antegrade vertebral artery flow. Examination of the left carotid circulation again demonstrates widely patent common carotid and external carotid arteries. Carotid bulb again demonstrates minimal calcified plaquing extending into the origin of the internal carotid artery. PSV of the CCA is 94 cm/s. PSV of the ICA is 104 cm/s. ICA/CCA ratio is 1.1. Normal antegrade vertebral artery flow. Impression: Again minimal arteriosclerotic plaquing bilaterally without critical stenosis/obstruction. Velocity measurements and ratios remain negative for hemodynamically significant flow-limiting stenosis.
[2022-02-12 11:36] LABS: TSH, 3RD Generation 1.79 mIU/L (0.47-4.68)
[2022-02-12] MEDS: ZOCOR 20MG PO SCH (21:11)
[2022-02-12] MEDS: APRESOLINE 20 MG/ML INJ IV PRN (23:49)
[2022-02-13] MEDS: ENOXAPARIN SODIUM SQ SCH (08:27)
[2022-02-13] MEDS: Coreg PO SCH ×2 (08:27→22:13)
[2022-02-13] MEDS: ECOTRIN 81 MG PO SCH (08:27)
--- NOTE | 2022-02-13 08:50 | PCM.NOTE ---
Date and Time: 02/13/22 0848 Subjective Assessment: patient in no distress, has some pain in her back when she gets up but this is chronic. she has no other complaints today Objective Exam General Appearance: no apparent distress, obese Respiratory Exam: normal breath sounds, lungs clear, No respiratory distress Cardiovascular Exam: regular rate/rhythm, normal heart sounds Gastrointestinal/Abdomen Exam: soft, No tenderness, No mass OBJECTIVE DATA Vital Signs: Vital Signs - 24 hr Temp Pulse Resp BP Pulse Ox 02/13/22 08:27 92 L 02/13/22 08:14 83 L 02/13/22 03:46 98.4 F 73 19 178/78 93 L 02/13/22 00:09 97.8 F 67 19 198/77 92 L 02/13/22 00:04 69 161/71 02/12/22 20:00 98.5 F 75 18 195/90 93 L 02/12/22 17:54 92 L 02/12/22 16:00 99.1 F 75 16 154/70 92 L Pain Assessment - Last Documented Pain Intensity 4 Pain Scale Used 0-10 Pain Scale Intake and Output: Intake & Output 02/10/22 02/11/22 02/12/22 02/13/22 11:59 11:59 11:59 11:59 Intake Total 2173 3066 Output Total 1200 2000 Balance -1200 2173 1066 Weight 104 kg 104.5 kg Lab Results: Lab Results-Last 24 Hours 02/12/22 02/12/22 02/12/22 Range/Units 07:05 07:05 07:05 PT 11.5 (9.4-12.5) SECONDS INR 1.09 (0.8-3.0) APTT 27.3 (25.1-36.5) SECONDS POC Glucometer (74 to 106) mg/dL Hemoglobin A1c 6.91 H (4.5-6.0) % Vitamin B12 795 (239-931) pg/mL TSH 3rd Generation 1.790 (0.47-4.68) mIU/L 02/12/22 02/12/22 02/12/22 Range/Units 10:49 16:09 20:51 PT (9.4-12.5) SECONDS INR (0.8-3.0) APTT (25.1-36.5) SECONDS POC Glucometer 170 H 94 120 H (74 to 106) mg/dL Hemoglobin A1c (4.5-6.0) % Vitamin B12 (239-931) pg/mL TSH 3rd Generation (0.47-4.68) mIU/L 02/13/22 Range/Units 08:05 PT (9.4-12.5) SECONDS INR (0.8-3.0) APTT (25.1-36.5) SECONDS POC Glucometer 137 H (74 to 106) mg/dL Hemoglobin A1c (4.5-6.0) % Vitamin B12 (239-931) pg/mL TSH 3rd Generation (0.47-4.68) mIU/L Radiology Exams: Radiology Procedures Category Date Time Status CAROTID BILATERAL [US] Routine Exams 02/12/22 09:17 Completed ECHO W/2D AND DOPPLER [US] Routine Exams 02/12/22 09:16 Taken Multi-Disciplinary Progress Notes: Multi-Disciplinary Progress Notes 02/13/22 08:21 Respiratory Note by Genny Martinez Patient O2 sat at rest on room air 92% Patient ambulated on room air and O2 sat 83% on room air with ambulation is 83%. Placed patient back on O2 at 2lpm O2 sat 93% Initialized on 02/13/22 08:21 - END OF NOTE 02/12/22 10:17 Physical Therapy Note by Charly (L#[id number])Nieves CHART REVIEW WAS COMPLETED THIS AM BY PT. AT THIS TIME PHYSICAL THERAPY IS ON HOLD PENDING TRANSFER TO [facility] FOR A NEUROLOGY CONSULT. THERE IS A CONCERN FOR TRAVELING REPAIR ACCOUNTANT SHUNT MALFUNCTION. Initialized on 02/12/22 10:17 - END OF NOTE Assessment/Plan (1) Hypertensive urgency Current Visit: Yes Status: Acute Assessment & Plan: add amlodipine 5mg daily, continue current dose of coreg. currently only receiving coreg and prn hydralazine. lock IV, apparently waiting for bed at [facility] due to TRAVELING REPAIR ACCOUNTANT shunt, she is currently stable Code(s): I16.0 - HYPERTENSIVE URGENCY (2) TRAVELING REPAIR ACCOUNTANT (ventriculoperitoneal) shunt status Current Visit: Yes Status: Chronic
[2022-02-13] MEDS: NORVASC 5 MG PO SCH (09:39)
--- NOTE | 2022-02-13 13:26 | XRAY ---
History: 81-year-old female for diagnostic left and screening right mammogram. Left breast lump. Personal history left breast cancer with lumpectomy and radiation therapy 2002. Bilateral 3-D tomosynthesis mammography performed in the CC and MLO plane using CAD. 2-D synthesized images generated. Left breast DTs marker placed over region of interest with spot compression views obtained. Comparison: Prior studies dating back to February 14, 2013. Again both breasts are predominantly fatty. There remains benign-appearing calcifications scattered bilaterally. Posterior 9:00 left breast demonstrates grossly stable post-therapeutic changes. No interval developing suspicious breast mass, calcifications, new parenchymal distortion, or new skin thickening. Impression: 1. Benign mammogram. 2. Monthly self breast examination recommended as well as follow-up mammograms per ACS guidelines or as otherwise clinically indicated. BI-RADS 2. Benign finding.
[2022-02-13] MEDS: APRESOLINE 20 MG/ML INJ IV PRN (18:45)
[2022-02-13] MEDS: ZOCOR 20MG PO SCH (22:13)
[2022-02-14] MEDS: APRESOLINE 20 MG/ML INJ IV PRN (04:35)
[2022-02-14 06:15] LABS: ANION GAP 8.9 MEQ/L (5-15); BLOOD UREA NITROGEN 21 mg/dL (7-17); CHLORIDE 106 mmol/L (98-107); Calcium 8.4 mg/dL (8.4-10.2); Carbon Dioxide 28 mmol/L (22-30); Creatinine 1 0.93 mg/dL (0.52-1.04); EST GLOMERULAR FILTRATION RATE > 60.0 ML/MIN; Glucose 121 mg/dL (74-106); MAGNESIUM 2.2 mg/dL (1.6-2.3); SODIUM 139 mmol/L (137-145)
[2022-02-14 06:22] LABS: Hematocrit 33.3 % (35-47); Hemoglobin 10.7 g/dL (12.0-16.0); Mean Cell Volume 97.9 fL (78-100); Mean Corpuscular Hemoglobin 31.5 pg (26-32); Mean Corpuscular Hgb Concent. 32.1 g/dL (32-36); Platelet Count 157 x10^3/uL (150-450); Red Cell Distribution Width 14.8 % (11.5-14.0); White Blood Count 5.2 x10^3/uL (4.0-10.5)
[2022-02-14] MEDS: ECOTRIN 81 MG PO SCH (08:18)
[2022-02-14] MEDS: Coreg PO SCH ×2 (08:18→21:19)
[2022-02-14] MEDS: NORVASC 5 MG PO SCH ×2 (08:19→18:05)
[2022-02-14] MEDS: ENOXAPARIN SODIUM SQ SCH (08:19)
--- NOTE | 2022-02-14 14:10 | PCM.NOTE ---
Date and Time: 02/14/22 1407 Subjective Assessment: Pt feeling better with her BP lower - was 194/81 at 0400, then 161/70. Latest BP 128/53. Raven po. No dizziness. - Review of Systems Constitutional: No Fever Abdominal/Gastrointestinal: No Vomiting Objective Exam General Appearance: no apparent distress, alert Neurologic Exam: oriented x 3, cooperative Skin Exam: normal color, warm, dry, No rash Eye Exam: eyes nml inspection Ears, Nose, Throat Exam: moist mucous membranes Neck Exam: normal inspection Respiratory Exam: normal breath sounds, lungs clear, No crackles/rales, No rhonchi, No wheezing Cardiovascular Exam: regular rate/rhythm, normal heart sounds, No murmur Gastrointestinal/Abdomen Exam: soft, normal bowel sounds, No tenderness, No distention, No mass, No guarding, No rebound Extremity Exam: normal inspection, No pedal edema, No swelling OBJECTIVE DATA Vital Signs: Vital Signs - 24 hr Temp Pulse Resp BP Pulse Ox 02/14/22 12:00 97.9 F 76 26 H 128/53 92 L 02/14/22 08:00 97.0 F 76 18 161/70 93 L 02/14/22 07:48 93 L 02/14/22 04:00 98.7 F 68 20 194/81 95 02/14/22 00:00 98.1 F 71 20 159/66 94 L 02/13/22 19:00 97.8 F 76 20 210/70 93 L 02/13/22 16:00 97.1 F 69 24 170/82 91 L Pain Assessment - Last Documented Pain Intensity 4 Pain Scale Used 0-10 Pain Scale Intake and Output: Intake & Output 02/12/22 02/13/22 02/14/22 02/15/22 11:59 11:59 11:59 11:59 Intake Total 2173 3066 520 Output Total 1999 1900 Balance 2173 1066 -1380 Weight 104.5 kg 105.9 kg 104.6 kg Lab Results: Lab Results-Last 24 Hours 02/13/22 02/13/22 02/14/22 Range/Units 15:38 21:10 04:55 WBC 5.2 (4.0-10.5) x10^3/uL RBC 3.40 L (4.1-5.4) x10^6/uL Hgb 10.7 L (12.0-16.0) g/dL Hct 33.3 L (35-47) % MCV 97.9 (78-100) fL MCH 31.5 (26-32) pg MCHC 32.1 (32-36) g/dL RDW 14.8 H (11.5-14.0) % Plt Count 157 (150-450) x10^3/uL MPV 11.0 (7.5-11.0) fL Sodium (137-145) mmol/L Potassium (3.5-5.1) mmol/L Chloride (98-107) mmol/L Carbon Dioxide (22-30) mmol/L Anion Gap (5-15) MEQ/L BUN (7-17) mg/dL Creatinine (0.52-1.04) mg/dL Estimated GFR ML/MIN Glucose (74-106) mg/dL POC Glucometer 122 H 107 H (74 to 106) mg/dL Calcium (8.4-10.2) mg/dL Magnesium (1.6-2.3) mg/dL 02/14/22 02/14/22 02/14/22 Range/Units 04:55 07:52 12:41 WBC (4.0-10.5) x10^3/uL RBC (4.1-5.4) x10^6/uL Hgb (12.0-16.0) g/dL Hct (35-47) % MCV (78-100) fL MCH (26-32) pg MCHC (32-36) g/dL RDW (11.5-14.0) % Plt Count (150-450) x10^3/uL MPV (7.5-11.0) fL Sodium 139 (137-145) mmol/L Potassium 4.0 (3.5-5.1) mmol/L Chloride 106 (98-107) mmol/L Carbon Dioxide 28 (22-30) mmol/L Anion Gap 8.9 (5-15) MEQ/L BUN 21 H (7-17) mg/dL Creatinine 0.93 (0.52-1.04) mg/dL Estimated GFR > 60.0 ML/MIN Glucose 121 H (74-106) mg/dL POC Glucometer 127 H 150 H (74 to 106) mg/dL Calcium 8.4 (8.4-10.2) mg/dL Magnesium 2.2 (1.6-2.3) mg/dL Radiology Exams: Radiology Procedures Category Date Time Status DIAG BILATERAL W/INGRID Urgent Exams 02/13/22 12:30 Completed Assessment/Plan (1) Dizziness Current Visit: Yes Status: Acute Assessment & Plan: no more dizziness. Code(s): R42 - DIZZINESS AND GIDDINESS (2) Hypertensive urgency Current Visit: Yes Status: Acute Assessment & Plan: Continues to have elevated bp; was 210/70 last night at 1900. Added amlodipine 5mg po daily yesterday; will observe today and decide tomorrow whether to increase almlodopine (maybe not in light of bp today of 128/53). 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 Code(s): N63.0 - UNSPECIFIED LUMP IN UNSPECIFIED BREAST
[2022-02-14] MEDS: ZOCOR 20MG PO SCH (21:19)
[2022-02-15 05:24] LABS: Hematocrit 33.2 % (35-47); Hemoglobin 10.2 g/dL (12.0-16.0); Mean Cell Volume 99.7 fL (78-100); Mean Corpuscular Hemoglobin 30.6 pg (26-32); Mean Corpuscular Hgb Concent. 30.7 g/dL (32-36); Mean Platelet Volume 11.1 fL (7.5-11.0); Platelet Count 147 x10^3/uL (150-450); Red Blood Count 3.33 x10^6/uL (4.1-5.4); Red Cell Distribution Width 14.8 % (11.5-14.0)
[2022-02-15 06:26] LABS: ANION GAP 8.3 MEQ/L (5-15); Calcium 8.4 mg/dL (8.4-10.2); Creatinine 1 1.04 mg/dL (0.52-1.04); EST GLOMERULAR FILTRATION RATE 54.1 ML/MIN; Potassium 4.2 mmol/L (3.5-5.1)
[2022-02-15] MEDS: NORVASC 5 MG PO SCH (08:17)
[2022-02-15] MEDS: Coreg PO SCH ×2 (08:18→21:30)
[2022-02-15] MEDS: ENOXAPARIN SODIUM SQ SCH (08:18)
[2022-02-15] MEDS: ECOTRIN 81 MG PO SCH (08:18)
--- NOTE | 2022-02-15 13:04 | PCM.NOTE ---
Date and Time: 02/15/22 1301 Subjective Assessment: Feeling good. No dizziness. Raven po. - Review of Systems Constitutional: No Fever Abdominal/Gastrointestinal: No Vomiting Objective Exam General Appearance: no apparent distress, alert Neurologic Exam: oriented x 3, cooperative, No motor deficits Skin Exam: normal color, warm, dry, No rash Eye Exam: eyes nml inspection Ears, Nose, Throat Exam: moist mucous membranes Neck Exam: normal inspection Respiratory Exam: normal breath sounds, lungs clear, No crackles/rales, No rhonchi, No wheezing Cardiovascular Exam: regular rate/rhythm, normal heart sounds, murmur (III/ sys murmur) Gastrointestinal/Abdomen Exam: soft, normal bowel sounds, No tenderness, No distention, No mass, No guarding, No rebound Extremity Exam: normal inspection, No pedal edema, No swelling OBJECTIVE DATA Vital Signs: Vital Signs - 24 hr Temp Pulse Resp BP Pulse Ox 02/15/22 12:00 97.3 F 68 28 H 139/63 92 L 02/15/22 08:17 92 L 02/15/22 08:00 98.6 F 71 22 171/73 94 L 02/15/22 04:00 98.6 F 69 22 148/65 94 L 02/14/22 23:50 98.5 F 64 20 142/63 94 L 02/14/22 20:00 98.9 F 78 20 143/72 93 L 02/14/22 18:40 92 L 02/14/22 16:00 97.2 F 70 27 H 181/73 90 L Pain Assessment - Last Documented Pain Intensity 0 Pain Scale Used 0-10 Pain Scale Intake and Output: Intake & Output 02/13/22 02/14/22 02/15/22 02/16/22 11:59 11:59 11:59 11:59 Intake Total 3066 520 880 Output Total 2000 1900 1400 Balance 1066 -1380 -520 Weight 105.9 kg 104.6 kg 104.4 kg Lab Results: Lab Results-Last 24 Hours 02/14/22 02/14/22 02/15/22 Range/Units 16:27 21:29 04:55 WBC 5.0 (4.0-10.5) x10^3/uL RBC 3.33 L (4.1-5.4) x10^6/uL Hgb 10.2 L (12.0-16.0) g/dL Hct 33.2 L (35-47) % MCV 99.7 (78-100) fL MCH 30.6 (26-32) pg MCHC 30.7 L (32-36) g/dL RDW 14.8 H (11.5-14.0) % Plt Count 147 L (150-450) x10^3/uL MPV 11.1 H (7.5-11.0) fL Sodium (137-145) mmol/L Potassium (3.5-5.1) mmol/L Chloride (98-107) mmol/L Carbon Dioxide (22-30) mmol/L Anion Gap (5-15) MEQ/L BUN (7-17) mg/dL Creatinine (0.52-1.04) mg/dL Estimated GFR ML/MIN Glucose (74-106) mg/dL POC Glucometer 106 108 H (74 to 106) mg/dL Calcium (8.4-10.2) mg/dL 02/15/22 02/15/22 02/15/22 Range/Units 04:55 07:53 12:06 WBC (4.0-10.5) x10^3/uL RBC (4.1-5.4) x10^6/uL Hgb (12.0-16.0) g/dL Hct (35-47) % MCV (78-100) fL MCH (26-32) pg MCHC (32-36) g/dL RDW (11.5-14.0) % Plt Count (150-450) x10^3/uL MPV (7.5-11.0) fL Sodium 140 (137-145) mmol/L Potassium 4.2 (3.5-5.1) mmol/L Chloride 105 (98-107) mmol/L Carbon Dioxide 30 (22-30) mmol/L Anion Gap 8.3 (5-15) MEQ/L BUN 24 H (7-17) mg/dL Creatinine 1.04 (0.52-1.04) mg/dL Estimated GFR 54.1 ML/MIN Glucose 114 H (74-106) mg/dL POC Glucometer 116 H 129 H (74 to 106) mg/dL Calcium 8.4 (8.4-10.2) mg/dL Radiology Exams: Radiology Procedures Category Date Time Status DIAG BILATERAL W/INGRID Urgent Exams 02/13/22 12:30 Completed Assessment/Plan (1) Dizziness Current Visit: Yes Status: Acute Assessment & Plan: no further recurrence. Had 2 episodes prior to admission. 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 Would like for her to be evaluated with neurology. She still has a bed at [facility] but they are not able to accept her yet. Code(s): R42 - DIZZINESS AND GIDDINESS (2) Hypertensive urgency Current Visit: Yes Status: Acute Assessment & Plan: Continues to have bp > 180 systolic. Added 5mg amlodipine 2d ago; didn't increase yesterday as she had one BP of 128/53 (lowest systolic in the past 24 hours 140s). 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
[2022-02-15] MEDS: ZOCOR 20MG PO SCH (21:29)
[2022-02-16] MEDS: Coreg PO SCH (08:01)
[2022-02-16] MEDS: ENOXAPARIN SODIUM SQ SCH (08:01)
[2022-02-16] MEDS: ECOTRIN 81 MG PO SCH (08:01)
[2022-02-16] MEDS: NORVASC 5 MG PO SCH (08:01)
--- NOTE | 2022-02-16 18:25 | PCM.DCORD ---
- Discharge Disposition: Home, Self-Care Condition: Stable Prescriptions: New Amlodipine Besylate 5 mg [Norvasc 5 mg] 5 mg PO DAILY #30 tablet Continue Ascorbate Calcium [Vitamin C] 500 mg PO BID Pravastatin Sodium [Pravachol] 80 mg PO QHS Carvedilol [Coreg ] 6.25 mg PO BID #60 tablet Ezetimibe 10 mg [Zetia 10 MG] 10 mg PO DAILY Cyanocobalamin (Vitamin B-12) [Vitamin B-12] 1,000 mcg PO DAILY Aspirin 81 gm Chew [Baby Aspirin 81 mg Chew] 81 mg PO DAILY Cholecalciferol (Vitamin D3) [Vitamin D3] 25 mcg PO DAILY Ascorbic Acid 500 mg [Vitamin C 500 MG] 500 mg PO BID Calcium Carbonate [Calcium] 1,200 mg PO DAILY [place]-3 Fatty Acids/Fish Oil [Fish Oil 1,000 mg Capsule] 1,000 mg PO BID Instructions: High Blood Pressure (DC) Additional Instructions: CHECK BLOOD PRESSURE TWICE DAILY AND KEEP RECORD TO TAKE TO FOLLOW UP APPOINTMENT WITH DR. MOSER. ALL REQUESTED DOCUMENTS HAVE BEEN SENT TO [facility]. THEY WILL CONTACT YOU WITH FOLLOW UP APPOINTMENT REGARDING AIRPLANE FUELER SHUNT. Follow up with: MATILDA MOSER [Primary Care Provider] - 02/25/22 1:00 pm Forms: Discharge Instructions
--- NOTE | 2022-02-16 18:28 | PCM.DS ---
Discharge Summary Date of Admission: 02/12/22 08:30 Date of Discharge: 02/16/22 Admitting Physician: SHAISTA FUCHS Consults: Teleneuro,neurosurgery Primary Care Provider: AMTILDA MOSER Allergies Allergies cefaclor [From Ceclor] Allergy (Intermediate, Verified 02/10/22 23:28) [facility] Summary - Vitals & Intake/Output Vital Signs: Vital Signs Temperature 98.1 F 02/16/22 16:00 Pulse Rate 69 02/16/22 16:00 Respiratory Rate 16 02/16/22 16:00 Blood Pressure 152/68 02/16/22 16:00 O2 Sat by Pulse Oximetry 93 L 02/16/22 16:00 Intake & Output: Intake & Output 02/14/22 02/15/22 02/16/22 02/17/22 11:59 11:59 11:59 11:59 Intake Total 520 880 780 480 Output Total 1900 1400 300 600 Balance -1380 -520 480 -120 Weight 104.6 kg 104.4 kg 104.8 kg - Lab Result Diagrams: 02/15/22 04:55 02/15/22 04:55 Lab Results-Last 24 Hrs: Lab Results-Last 24 Hours 02/15/22 Range/Units 21:07 POC Glucometer 112 H (74 to 106) mg/dL Micro Results-Entire Visit: Microbiology 02/11/22 00:17 Urine Culture - Final Clean Catch Midstream MIXED BRITTANY; 3 OR MORE TYPES. NO PREDOMINANT ORGANISM. NO FURTHER WORKUP. PLEASE RESUBMIT IF CLINICALLY INDICATED. - Procedures and Test Procedures and Tests throughout Hospitalization: Therapy Orders & Screens 02/11/22 03:22 EKG [id number],QAMX3,PRN Comment: 02/11/22 06:15 EKG ROUTINE Comment: Diagnosis: Dizziness, hypertensive urgency 02/11/22 08:23 Oxygen Nasal Cannula 2 lpm Comment: Diagnosis: Dizziness, hypertensive urgency 02/12/22 05:00 EKG DAILY Comment: Diagnosis: Dizziness, hypertensive urgency 02/12/22 08:19 EEG 41-60 Minutes (Normal) ONCE Comment: Reason For Exam: Diagnosis: Dizziness, hypertensive urgency 02/13/22 05:00 EKG DAILY Comment: Diagnosis: Dizziness, hypertensive urgency 02/14/22 05:00 EKG DAILY Comment: Diagnosis: Dizziness, hypertensive urgency 02/16/22 14:00 PT Eval & Treat ( Order) ONCE Reason for Eval:: PT/OT/ST consult per neurology rec; pt had dizziness, has ENGINEER ASSISTANT shunt - DR. PENA WOULD LIKE FOR PT TO WALK PT IN [place] TO DETERMINE IF PT WILL BE SAFE TO D/C HOME TODAY. Diagnosis: Dizziness, hypertensive urgency - Discharge Disposition: Home, Self-Care Condition: Stable Prescriptions: New Amlodipine Besylate 5 mg [Norvasc 5 mg] 5 mg PO DAILY #30 tablet Continue Ascorbate Calcium [Vitamin C] 500 mg PO BID Pravastatin Sodium [Pravachol] 80 mg PO QHS Carvedilol [Coreg ] 6.25 mg PO BID #60 tablet Ezetimibe 10 mg [Zetia 10 MG] 10 mg PO DAILY Cyanocobalamin (Vitamin B-12) [Vitamin B-12] 1,000 mcg PO DAILY Aspirin 81 gm Chew [Baby Aspirin 81 mg Chew] 81 mg PO DAILY Cholecalciferol (Vitamin D3) [Vitamin D3] 25 mcg PO DAILY Ascorbic Acid 500 mg [Vitamin C 500 MG] 500 mg PO BID Calcium Carbonate [Calcium] 1,200 mg PO DAILY [place]-3 Fatty Acids/Fish Oil [Fish Oil 1,000 mg Capsule] 1,000 mg PO BID Instructions: High Blood Pressure (DC) Additional Instructions: CHECK BLOOD PRESSURE TWICE DAILY AND KEEP RECORD TO TAKE TO FOLLOW UP APPOINTMENT WITH DR. MOSER. ALL REQUESTED DOCUMENTS HAVE BEEN SENT TO [facility]. THEY WILL CONTACT YOU WITH FOLLOW UP APPOINTMENT REGARDING ENGINEER ASSISTANT SHUNT. Follow up with: MATILDA MOSER [Primary Care Provider] - 02/25/22 1:00 pm Forms: Discharge Instructions
[2022-02-16 19:01] VITALS: O2SAT 94
[2022-02-16 19:12] VITALS: BP 146/62; PULSE 75
[2022-02-17 13:27] LABS: Albumin 3.2 g/dL (2.9-4.4); Alpha-1-Globulin 0.2 g/dL (0.0-0.4); Alpha-2-Globulin 0.9 g/dL (0.4-1.0); Gamma Globulin 1.8 g/dL (0.4-1.8); Immunoglobulin A, Qn 183 mg/dL (64-422); Immunoglobulin G, Qn 2080 mg/dL (586-1602); Immunoglobulin M, Qn 50 mg/dL (26-217); Protein, Total 7.2 g/dL (6.0-8.5)
--- NOTE | 2022-02-17 15:11 | ECHO ---
DATE: 02/12/2022 REASON FOR EXAM: Dizziness with DIRECTOR GEOTHERMAL OPERATIONS shunt. The patient underwent 2D echo, M-mode study, and color flow mapping which showed moderate concentric left ventricular hypertrophy with left ventricular wall thickness of 1.5-1.7 cm, normal LV size, and hypodynamic LV systolic function with calculated ejection fraction of 76 beats/minute. The left atrium appears to be mildly enlarged. The right atrium was normal in size. The right ventricle was normal in size and function. There is no evidence of any pericardial effusion. The aortic root size appears to be within normal limits. The mitral valve appears to be mildly thickened, however opening well without evidence of restriction. Aortic valve was mildly calcified with mild restriction of aortic valve opening consistent with more likely mild calcific aortic stenosis. The tricuspid valve was mildly thickened, but opening well without evidence of restriction. Pulmonic valve was not well visualized. Color Doppler study showed reversed mitral inflow E:A ratio suggestive of LV diastolic dysfunction. Trace aortic insufficiency, mild mitral regurgitation, and trace tricuspid regurgitation were also noted. IMPRESSION: 1. MODERATE CONCENTRIC LEFT VENTRICULAR HYPERTROPHY WITH HYPODYNAMIC LEFT VENTRICULAR SYSTOLIC FUNCTION. 2. DIASTOLIC DYSFUNCTION. 3. MILD CALCIFIC AORTIC STENOSIS MOST LIKELY. 4. MILD MITRAL REGURGITATION, TRACE AORTIC INSUFFICIENCY, AND TRACE TRICUSPID REGURGITATION.
== END 2022-02-16 20:15 | disposition home or self-care (01) | DRG 149 ==
LOC: ED 21:41 → MED SURG 02-11 03:16 → OBSVTOIN 02-12 08:30
PROVIDERS: ADMIT Family Medicine; ATTEND Family Medicine
DX: R42 Dizziness and giddiness (principal); J96.11 Chronic respiratory failure with hypoxia; I16.0 Hypertensive urgency; I10 Essential (primary) hypertension; E11.9 Type 2 diabetes mellitus without complications; M54.9 Dorsalgia, unspecified; Z85.3 Personal history of malignant neoplasm of breast; N63.20 Unspecified lump in the left breast, unspecified quadrant; E78.5 Hyperlipidemia, unspecified; Z79.899 Other long term (current) drug therapy; Z20.828 Contact with and (suspected) exposure to other viral communicable diseases; Z85.528 Personal history of other malignant neoplasm of kidney; Z98.2 Presence of cerebrospinal fluid drainage device
CPT/HCPCS: 0241U; 36000; 36415; 70450; 77066; 80048; 80053; 80061; 81015; 82607; 82784; 82947; 83036; 83521; 83721; 83735; 83880; 84165; 84443; 84484; 85025; 85027; 85610; 85730; 87086; 90662; 93005; 93041; 93268; 93306; 93880; 94760; 95812; 99284; G0008; G0279; J0360; J1650; Q3014; A9270-GY; G0378

== ENCOUNTER 2023-11-10 07:51 | Day surgery (SDC) | payer MEDICARE ==
[2023-11-10] MEDS ORDERED: Depo-Medrol 40 MG/ML IM ONE (07:52)
[2023-11-10] MEDS ORDERED: Xylocaine-Mpf 2% 5 Ml Vial IJ ONE (07:52)
[2023-11-10] MEDS ORDERED: Lactated Ringers 1,000 ML IV ONE (09:27)
[2023-11-10] MEDS ORDERED: DIPRIVAN 200 MG/20 ML IV ONE (09:43)
--- NOTE | 2023-11-10 11:10 | XRAY ---
Indication: Bilateral L4-S1 MBB. Intraoperative fluoroscopy provided for 7 seconds. 2 digital spot image submitted for interpretation demonstrates posterior needle tips projecting over the expected left and right L4-S1 nerve roots. Correlate with intraoperative findings/report.
--- NOTE | 2023-11-10 12:22 | XRAY ---
7 seconds of fluoroscopy was used in surgery for a bilateral L4-S1 MBB.
== END 2023-11-10 10:15 | disposition home or self-care (01) ==
LOC: SDC-PAIN 07:51
PROVIDERS: ATTEND Psychiatry & Neurology Pain Medicine
DX: M47.816 Spondylosis without myelopathy or radiculopathy, lumbar region (principal); E11.9 Type 2 diabetes mellitus without complications
CPT/HCPCS: 64493; 64494; 72020; 77002; 82947; 99100; J2704

== ENCOUNTER 2023-12-15 09:01 | Day surgery (SDC) | payer MEDICARE ==
[2023-12-15] MEDS ORDERED: BUPIVACAINE 0.5% VIAL IJ ONE (09:02)
[2023-12-15] MEDS ORDERED: Depo-Medrol 40 MG/ML IM ONE (09:02)
[2023-12-15] MEDS ORDERED: DIPRIVAN 200 MG/20 ML IV ONE (11:03)
--- NOTE | 2023-12-15 11:49 | XRAY ---
20 seconds of fluoroscopy was used in surgery for a bilateral L4-S1 MBB.
--- NOTE | 2023-12-15 11:52 | XRAY ---
Indication: Bilateral L4-S1 MBB. Intraoperative fluoroscopy provided for 20 seconds. Single digital spot image submitted for interpretation demonstrates posterior needle tips projecting over expected left and right L4-S1 nerve roots. Correlate with intraoperative findings/report.
[2023-12-15] MEDS ORDERED: Lactated Ringers 1,000 ML IV ONE (14:32)
== END 2023-12-15 11:34 ==
LOC: SDC-PAIN 09:01
PROVIDERS: ATTEND Psychiatry & Neurology Pain Medicine
DX: M47.816 Spondylosis without myelopathy or radiculopathy, lumbar region (principal); E11.9 Type 2 diabetes mellitus without complications
CPT/HCPCS: 64493; 64494; 72020; 77002; 82947; J2704

== ENCOUNTER 2024-01-19 08:57 | Day surgery (SDC) | payer MEDICARE ==
[2024-01-19] MEDS ORDERED: Depo-Medrol 40 MG/ML IM ONE (08:58)
[2024-01-19] MEDS ORDERED: BUPIVACAINE 0.5% VIAL IJ ONE (08:58)
[2024-01-19] MEDS ORDERED: LIDOCAINE HCL 1% 50 MG/5 ML VL PF IJ ONE (08:58)
[2024-01-19] MEDS ORDERED: DIPRIVAN 200 MG/20 ML IV ONE (10:20)
[2024-01-19] MEDS ORDERED: Xylocaine-Mpf 2% 5 Ml Vial ONE (10:21)
--- NOTE | 2024-01-19 12:03 | XRAY ---
Indication: Right L4-S1 RFA. Intraoperative fluoroscopy provided for 29 seconds. 5 digital spot images submitted for interpretation demonstrates posterior needle tips projecting over expected right L4-S1 nerve roots. Correlate with intraoperative findings/report.
--- NOTE | 2024-01-19 12:05 | XRAY ---
29 seconds of fluoroscopy was used in surgery for a right L4-S1 RFA.
[2024-01-19] MEDS ORDERED: Lactated Ringers 1,000 ML IV ONE (14:17)
== END 2024-01-19 10:55 ==
LOC: SDC-PAIN 08:57
PROVIDERS: ATTEND Psychiatry & Neurology Pain Medicine
DX: M47.816 Spondylosis without myelopathy or radiculopathy, lumbar region (principal); E11.9 Type 2 diabetes mellitus without complications
CPT/HCPCS: 64635; 64636; 72100; 77002; 82947; 99100; J2001; J2704

== ENCOUNTER 2024-01-20 08:58 | Day surgery (SDC) | payer MEDICARE ==
[2024-01-20] MEDS ORDERED: LIDOCAINE HCL 1% 50 MG/5 ML VL PF IJ ONE (08:59)
[2024-01-20] MEDS ORDERED: Depo-Medrol 40 MG/ML IM ONE (08:59)
[2024-01-20] MEDS ORDERED: BUPIVACAINE 0.5% VIAL IJ ONE (08:59)
[2024-01-20] MEDS ORDERED: DIPRIVAN 200 MG/20 ML IV ONE (10:49)
--- NOTE | 2024-01-20 12:00 | XRAY ---
Indication: Left L4-S1 RFA. Intraoperative fluoroscopy provided for 30 seconds. 3 digital spot images submitted for interpretation demonstrates posterior needle tips projecting over the expected left L4-S1 nerve roots. Correlate with intraoperative findings/report.
--- NOTE | 2024-01-20 12:47 | XRAY ---
30 seconds of fluoroscopy was used in surgery for a left L4-S1 RFA.
[2024-01-20] MEDS ORDERED: Lactated Ringers 1,000 ML IV ONE (13:46)
== END 2024-01-20 11:25 | disposition home or self-care (01) ==
LOC: SDC-PAIN 08:58 → SDC 08:58 → SDC-PAIN 11:25
PROVIDERS: ATTEND Psychiatry & Neurology Pain Medicine
DX: M47.817 Spondylosis without myelopathy or radiculopathy, lumbosacral region (principal); E11.9 Type 2 diabetes mellitus without complications
CPT/HCPCS: 64635; 64636; 72100; 77002; 82947; 99100; J2001; J2704

== ENCOUNTER 2024-08-14 05:17 | Emergency (ER) | payer MEDICARE ==
[2024-08-14 05:38] VITALS: RESP 18; TEMP 97.2
[2024-08-14] MEDS ORDERED: Sodium Chloride 0.9% 1000 ML 1,000 ML ONE (06:03)
[2024-08-14] MEDS: Sodium Chloride 0.9% 1000 ML 1,000 ML IV SCH (06:04)
--- NOTE | 2024-08-14 06:05 | ERPHSYRPT ---
- History of Present Illness Historian: patient Exam Limitations: no limitations Patient Subjective Stated Complaint: "I've been having trouble peeing. I think I have a UTI. My lower stomach has been hurting and I can't go pee". Triage Nursing Assessment: Pt presents to ER with complaints of lower abdominal cramping and urinary retention since approx 0000. Pt rates pain 9/10 scale. Hx Tetanus, Diphtheria Vaccination/Date Given: Yes (feb 2021) Hx Influenza Vaccination/Date Given: Yes Hx Pneumococcal Vaccination/Date Given: Yes Immunizations Up to Date: Yes <LISA OCONNOR - Last Filed: 08/14/24 07:02> <GARY BUNDY - Last Filed: 08/14/24 07:30> - History of Present Illness Time Seen by Provider: 08/14/24 05:46 Physician History: Pt states she has had sharp suprapubic and upper abdominal pain for the past 5 3/4 hours and inability to urinate. Last BM was yesterday & was diarrhea. Pt denies nausea, vomiting, chest pain, shortness of air, fever. (LISA OCONNOR) Allergies/Adverse Reactions: cefaclor [From Ceclor] Allergy (Intermediate, Verified 08/14/24 05:38) Rash Penicillins Allergy (Intermediate, Verified 08/14/24 05:38) Rash Home Medications: Pravastatin Sodium [Pravachol] 80 mg PO QHS 05/21/17 [History] Ascorbic Acid 500 mg [Vitamin C 500 MG] 500 mg PO BID 02/11/22 [History] Aspirin 81 gm Chew [Baby Aspirin 81 mg Chew] 81 mg PO DAILY 02/11/22 [History] Calcium Carbonate [Calcium] 1,200 mg PO DAILY 02/11/22 [History] Cholecalciferol (Vitamin D3) [Vitamin D3] 25 mcg PO DAILY 02/11/22 [History] Ezetimibe 10 mg [Zetia 10 MG] 10 mg PO DAILY 02/11/22 [History] [place]-3 Fatty Acids/Fish Oil [Fish Oil 1,000 mg Capsule] 1,000 mg PO BID 02/11/22 [History] Amlodipine Besylate 5 mg [Norvasc 5 mg] 5 mg PO BID 08/14/24 [History] Travel Risk - International Travel Have you traveled outside of the country in past 3 weeks: No - Emerging Infectious Disease Are you exhibiting symptoms associated with any current EIDs: No <LISA OCONNOR JESUSITA - Last Filed: 08/14/24 07:02> - Review of Systems Constitutional: No Fever Respiratory: No Dyspnea Cardiac: No Chest Pain Abdominal/Gastrointestinal: Abdominal Pain, Diarrhea, No Nausea, No Vomiting <LISA OCONNOR - Last Filed: 08/14/24 07:02> - Past Medical History Pertinent Past Medical History: Yes Neurological History: TIA, Other ENT History: Cataracts Cardiac History: High Cholesterol, Hypertension Respiratory History: COPD Endocrine Medical History: Diabetes Type II, Other Musculoskeletal History: Osteoarthritis GI Medical History: GERD History: Kidney Cancer, Renal Disease Psycho-Social History: No Pertinent History Female Reproductive Disorders: Breast Cancer Other Medical History: KIDNEY CANCER, 1 KIDNEY REMOVED 7 YEARS AGO. 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 FATTY LIVER. L TKA. L BREAST CA, LUMPECTOMY 20 YEARS AGO. - Past Surgical History Past Surgical History: Yes Neuro Surgical History: Brain Shunt Cardiac: No Pertinent History Respiratory: No Pertinent History Gastrointestinal: No Pertinent History Genitourinary: Kidney Surgery Musculoskeletal: No Pertinent History Female Surgical History: Hysterectomy, Lumpectomy Other Surgical History: BREAST CA, WITH LUMPECTOMY AND CHIP PLACEMENT,. BUNION SURGERY, CATARACT SURGERY WITH CORRECTIVE LENS IMPLANTS BILATERALLY, Right nephrectomy 04/28/17 - Social History Smoking Status: Never smoker Exposure to second hand smoke: Yes (for years) Drug Use: none - Social Determinants of Health Will the patient participate in the screening: Yes Do you worry about a steady place to live?: No Do you have any problems with any of the following?: No known problems In the past 12 months,have you had to go without utilities?: No Transportation Issues: No Has anyone in your support network made you feel unsafe?: No Have you or anyone in your house had to go w/o enough food: No <ELVINLISA MC - Last Filed: 08/14/24 07:02> - Physical Exam General Appearance: alert Eye Exam: PERRL/EOMI Ears, Nose, Throat Exam: pharynx normal Neck Exam: normal inspection Respiratory Exam: lungs clear Cardiovascular Exam: murmur (1/6 systolic murmur) Gastrointestinal/Abdomen Exam: normal bowel sounds, No tenderness Back Exam: normal inspection Neurologic Exam: alert, cooperative Skin Exam: warm, dry SpO2 Interpretation: hypoxic SpO2: 90 O2 Delivery: Room Air <LISA OCONNOR - Last Filed: 08/14/24 07:02> - Nursing Vital Signs Nursing Vital Signs: Initial Vital Signs Temperature 97.2 F 08/14/24 05:27 Pulse Rate 65 08/14/24 05:27 Respiratory Rate 18 08/14/24 05:27 Blood Pressure 187/70 08/14/24 05:27 O2 Sat by Pulse Oximetry 90 L 08/14/24 05:27 Pain Scale Pain Intensity 3 Ordered Tests: Active Orders 24 hr Category Date Time Status IV Insertion STAT Care 08/14/24 05:58 Active Oxygen-ED Only Nasal Cannula 2 lpm Care 08/14/24 06:06 Active ABDOMEN AND PELVIS W/0 CONTRAS [CT] Stat Exams 08/14/24 05:59 Completed AMYLASE Stat Lab 08/14/24 06:05 Completed CBC W DIFF Stat Lab 08/14/24 06:05 Completed CMP Stat Lab 08/14/24 06:05 Completed CULTURE,URINE Stat Lab 08/14/24 06:05 Received LIPASE Stat Lab 08/14/24 06:05 Completed MAGNESIUM Stat Lab 08/14/24 06:05 Completed UA W/RFX UR CULTURE Stat Lab 08/14/24 06:01 Completed Medication Summary Generic Name Dose Route Start Last Admin Trade Name Freq PRN Reason Stop Dose Admin Sodium Chloride 1,000 mls @ 100 mls/hr 08/14/24 06:00 08/14/24 07:07 Sodium Chloride 0.9% 1000 Ml IV 09/13/24 05:59 999 mls/hr .Q10H [facility] Infusion Lab/Rad Data: Laboratory Result Diagrams 08/14/24 06:05 08/14/24 06:05 Laboratory Results 08/14/24 08/14/24 08/14/24 Range/Units 06:05 06:05 06:01 WBC 5.4 (3.98-10.04) x10^3/uL RBC 4.17 (3.93-5.22) x10^6/uL Hgb 12.3 (11.2-15.7) g/dL Hct 38.0 (34.1-44.9) % MCV 91.1 (79.4-94.8) fL MCH 29.5 (25.6-32.2) pg MCHC 32.4 (32.2-35.5) g/dL RDW 15.2 H (11.7-14.4) % Plt Count 174 L (182-369) x10^3/uL MPV 10.2 (9.4-12.3) fL Gran % 71.6 H (34.0-71.1) % Immature Gran % (Auto) 0.4 (0.001-0.429) % Nucleat RBC Rel Count 0.0 (0.00-0.2) % Eos # (Auto) 0.18 (0.04-0.36) x10^3/uL Immature Gran # (Auto) 0.02 (0.001-0.031) x10^3u/L Absolute Lymphs (auto) 1.01 L (1.18-3.74) x10^3/uL Absolute Monos (auto) 0.32 (0.24-0.86) x10^3/uL Absolute Nucleated RBC 0.00 (0.00-0.012) x10^3u/L Lymphocytes % 18.6 L (19.3-51.7) % Monocytes % 5.9 (4.7-12.5) % Eosinophils % 3.3 (0.7-5.8) % Basophils % 0.2 (0.1-1.2) % Absolute Granulocytes 3.90 (1.56-6.13) x10^3/uL Basophils # 0.01 (0.01-0.08) x10^3/uL Sodium 140 (135-145) mmol/L Potassium 4.6 (3.5-5.1) mmol/L Chloride 105 (98-107) mmol/L Carbon Dioxide 22 (22-30) mmol/L Anion Gap 16.9 H (5-15) MEQ/L BUN 25 H (7-17) mg/dL Creatinine 0.83 (0.52-1.04) mg/dL Estimated GFR 69.5 ML/MIN Glucose 185 H (74-106) mg/dL Calcium 9.0 (8.4-10.2) mg/dL Magnesium 1.6 (1.6-2.3) mg/dL Total Bilirubin 0.80 (0.2-1.3) mg/dL AST 56 H (14-36) U/L ALT 33 (0-35) U/L Alkaline Phosphatase 60 (38-126) U/L Serum Total Protein 8.1 (6.3-8.2) g/dL Albumin 4.5 (3.5-5.0) g/dL Amylase 70 (30-110) U/L Lipase 162 (23-300) U/L Urine Color Red A (Yellow) Urine Appearance Turbid A (Clear) Urine pH 5.5 (4.6-8.0) Ur Specific [place] 1.010 (1.005-1.030) Urine Protein 100 A (Negative) Urine Glucose (UA) Negative (Negative) mg/dL Urine Ketones Negative (Negative) Urine Blood Large A (Negative) Urine Nitrite Negative (Negative) Urine Bilirubin Small A (Negative) Urine Urobilinogen 0.2 (0.2) mg/dL Ur Leukocyte Esterase Small A (Negative) Urine Microscopic RBC >100 A (0-5) /HPF Urine Microscopic WBC 6-10 A (0-5) /HPF Ur Epithelial Cells None Seen (None Seen) /HPF Urine Bacteria Few A (None Seen) /HPF Urine Culture Reflexed ORDERED SEPARATELY (NO) <LISA OCONNOR - Last Filed: 08/14/24 07:02> - Progress Progress: unchanged Counseled pt/family regarding: lab results, diagnosis, need for follow-up, rad results <GARY BUNDY - Last Filed: 08/14/24 07:30> - Progress Progress Note: 08/14/24 06:10 Pt's abdominal pain has disappeared after about 900 ml urine drainage via cath eter. (LISA OCONNOR) 08/14/24 07:26 I interpreted the patient's laboratory data results. The laboratory results show hematuria and a mild urinary tract infection. CT scan of the abdomen pelvis without contrast was interpreted by the radiologist and I reviewed the impression. The impression states when compared to similar study dated 11/16/2023, there is a stable hypodense right lobe of the liver questionable single cyst. The urinary bladder shows distention with a few polypoid hyperdense lesions. Could be neoplastic as they have increased in size and number since the comparison CT scan dated 11/16/2023. I discussed and reviewed the laboratory and radiographic results with the patient. It is recommended that she follows up with her primary care provider and her urologist today to make arrangements for follow-up appointment to be seen in the next 3 to 5 days. (GARY BUNDY) Medical Desision Making - Diagnostic Testing Diagnostic test were ordered, analyzed, and reviewed by me: Yes Radiological Interpretation: Reviewed by me, Teleradiologist Report - Risk of complications The pt has a mod risk of morbidity or mortality based on: Need for prescription drug management <GARY BUNDY - Last Filed: 08/14/24 07:30> - Departure Critical Care Time: No <LISA OCONNOR - Last Filed: 08/14/24 07:02> - Departure Departure Disposition: Home <GARY BUNDY - Last Filed: 08/14/24 07:30> - Departure Clinical Impression: Hematuria, Urinary retention, Lesion of urinary bladder, UTI (urinary tract infection) Condition: Stable Referrals: MATILDA MOSER [Primary Care Provider] - Follow up/PCP as directed Additional Instructions: Drink plenty of clear liquids. Take your medications as prescribed. Call your primary care provider and your urologist today, 08/14/2024, to make arrangements for follow-up appointment to be seen in the next 3 to 5 days to discuss the findings in your urinary bladder. Prescriptions: Ciprofloxacin [Cipro 500 MG] 500 mg PO BID #14 tablet
[2024-08-14 06:08] LABS: BASOPHIL % 0.2 % (0.1-1.2); Basophil (Absolute #) 0.01 x10^3/uL (0.01-0.08); Eosinophil % 3.3 % (0.7-5.8); Eosinophil (Absolute #) 0.18 x10^3/uL (0.04-0.36); Hemoglobin 12.3 g/dL (11.2-15.7); IMMATURE GRAN # 0.02 x10^3u/L (0.001-0.031); IMMATURE GRAN % 0.4 % (0.001-0.429); Lymphocyte (Absolute #) 1.01 x10^3/uL (1.18-3.74); Lymphocytes % 18.6 % (19.3-51.7); Mean Cell Volume 91.1 fL (79.4-94.8); Mean Corpuscular Hemoglobin 29.5 pg (25.6-32.2); Mean Corpuscular Hgb Concent. 32.4 g/dL (32.2-35.5); Mean Platelet Volume 10.2 fL (9.4-12.3); Monocyte (Absolute #) 0.32 x10^3/uL (0.24-0.86); Monocytes % 5.9 % (4.7-12.5); Neutrophil % 71.6 % (34.0-71.1); Platelet Count 174 x10^3/uL (182-369); Red Blood Count 4.17 x10^6/uL (3.93-5.22); Red Cell Distribution Width 15.2 % (11.7-14.4); White Blood Count 5.4 x10^3/uL (3.98-10.04)
[2024-08-14 06:18] LABS: ALBUMIN 4.5 g/dL (3.5-5.0); ANION GAP 16.9 MEQ/L (5-15); BILIRUBIN,TOTAL 0.8 mg/dL (0.2-1.3); Creatinine 1 0.83 mg/dL (0.52-1.04); EST GLOMERULAR FILTRATION RATE 69.5 ML/MIN; MAGNESIUM 1.6 mg/dL (1.6-2.3); Potassium 4.6 mmol/L (3.5-5.1); Total Protein 8.1 g/dL (6.3-8.2)
[2024-08-14 06:25] LABS: Appearance Turbid (Clear); Leukocyte Esterase Small (Negative); Ph 5.5 (4.6-8.0)
[2024-08-14 06:26] LABS: Bilirubin Small (Negative); Blood Large (Negative); Glucose, Urine Negative (Negative); Ketones Negative (Negative); Nitrite Negative (Negative); Protein,Urine Dip 100 (Negative); Urobilinogen 0.2 mg/dL (0.2)
[2024-08-14 06:30] LABS: Bacteria Few /HPF (None Seen); Epithelial Cells None Seen /HPF (None Seen); RBC >100 /HPF (0-5)
--- NOTE | 2024-08-14 07:18 | XRAY ---
CLINICAL HISTORY: pain COMPARISON: November 15/2024 09:41:26 MECHANIC GENERAL OPERATIONAL TEST. TECHNIQUE: Contiguous axial images were obtained from the level of the diaphragm to the pubic symphysis without intravenous or oral contrast. Coronal and sagittal reconstructions were not made available decreasing the sensitivity for detecting clinically relevant pathology. CT scan was performed according to ALARA (as low as reasonably achievable). FINDINGS: The visualized lung bases are clear. Liver appears average in size and shows hypodense lesion involving right lobe - appear simple cyst. Status post-cholecystectomy. Evaluation of the abdominal and pelvic visceral organs is limited without intravenous contrast. The unenhanced , spleen, pancreas, and adrenal glands are grossly unremarkable. Absent right kidney. The left kidney are normal in size and attenuation without obvious calcification. There is no hydronephrosis or perinephric stranding. 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 No adenopathy or fluid collections are seen. No evidence of focal or diffuse bowel wall thickening or evidence of bowel obstruction is seen. No acute appendicitis. The aorta is normal in caliber. The urinary bladder is distended and shows few polypoidal hyperdense lesion involving fundo-anterior region and along the posterior wall measuring about 4 x 3 cm and 1.5 cm respectively Pelvic viscera are grossly unremarkable. No aggressive appearing osseous lesions are identified. IMPRESSION: 1. A hypodense lesion is noted in right lobe of liver - appears simple cyst-stable. 2. Status post-cholecystectomy. 3. Absent right kidney. 4. 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 5. The urinary bladder is distended and shows few polypoidal hyperdense lesions as described- could be neoplastic lesions- increase in number and size. Correlation with cystoscopy and histopathology if not known yet. Electronically Signed by: Gregorio Watters MD. (08/14/2024 07:14:18 EDT)
[2024-08-14 07:40] VITALS: BP 168/69; PULSE 64; O2SAT 95
== END 2024-08-14 08:00 | disposition home or self-care (01) ==
LOC: ED 05:17
DX: N39.0 Urinary tract infection, site not specified (principal); R31.9 Hematuria, unspecified; R33.9 Retention of urine, unspecified; N32.89 Other specified disorders of bladder; R10.2 Pelvic and perineal pain; R10.30 Lower abdominal pain, unspecified; E78.5 Hyperlipidemia, unspecified; I10 Essential (primary) hypertension; E11.9 Type 2 diabetes mellitus without complications; Z79.899 Other long term (current) drug therapy
CPT/HCPCS: 36415; 74176; 80053; 81001; 82150; 83690; 83735; 85025; 87086; 96360; 99284; P9612